=== PATIENT | female | born 1925 | race Caucasian/White ===

== ENCOUNTER 2016-11-14 10:47 | Inpatient (IN) | payer OTHER ==
[~2016-11-14] VITALS: Ht 165.1 cm; Wt 79.4 kg
[~2016-11-14 10:47] MED LIST: ATENOLOL100 M1 PO; BISACODYL5 M1 PO; CEFTIN250 M1 PO; CLOPIDOGREL75 M1 PO; CRESTOR20 M2 PO; DOCUSATE SODIU100 M3 PO; FENOFIBRIC ACID45 M1 PO; HALOPERIDOL1 M1 PO; HYDROCORTISO28.35 GM EXT; LEVOTHYROXINE100 MC1 PO; MELATONIN5 M6 PO; MIRALAX17 G1 PO; NAPROXEN250 M1 PO; NYSTATIN100000 UNI PO; OMEPRAZOLE20 M2 PO; ONE DAILY MULT1 EAC2 PO; PEPCID20 M1 PO; PLAVIX75 M1 PO; PROSOURCE NO CA30 ML PO; QUETIAPINE FUMA25 M1 PO; SENNA8.6 M3 PO; SYNTHROID100 MCG PO; TENORMIN50 M1 PO; TRAZODONE HCL50 M1 PO; TYLENOL EXTRA500 M2 PO; TYLENOL325 M1 PO; VITAMIN C500 M8 PO; VITAMIN D3400 UNI1 PO; VOLTAREN100 GM TOP; ZITHROMAX250 M2 PO
--- NOTE | 2016-11-14 11:20 | NUR ---
INCONTINENT OF URINE ON ARRIVAL. KASHIF CARE DONE, COCCYX RED, NO SKIN BREAKDOWN. STRIAGHT CATHETERIZED FOR 100 ML CLOUDY, YELLOW URINE. URINE TRIO SENT.
--- NOTE | 2016-11-14 11:20 | NUR ---
BIBA FROM [facility], SENT FOR EVALUATION OF CHANGE IN MENTAL STATUS, CHEST CONGESTION. ALERT, BUT CONFUSED TO DATE , TIME, PLACE. 02 DEPENDENT (4L). RECENT DX OF UTI, ON ABX.
--- NOTE | 2016-11-14 11:35 | NUR ---
BLOOD DRAWN AND SENT TO THE LAB (SST,LAV,BLUE,LIRA) URINE TRIO SENT TO THE LAB
[2016-11-14] MEDS ORDERED: TRAZODONE HCL50 M1 PO ×2 (11:37→11:38)
[2016-11-14 11:39] LABS: ABSOLUTE BASOPHIL COUNT 0 /CUMM (0.0-0.2); ABSOLUTE EOSINOPHIL COUNT 0 /CUMM (0.0-0.7); ABSOLUTE GRANULOCYTE CT 18.3 /CUMM (1.4-6.5); ABSOLUTE LYMPH COUNT 1.4 /CUMM (1.2-3.4); ABSOLUTE MONOCYTE COUNT 1.5 /CUMM (0.10-0.60); BASOPHIL % 0.1 % (0.0-2.0); EOSINOPHIL % 0 % (0-5); GRANULOCYTE % 86.2 % (42.2-75.2); PLATELET COUNT 147 /CUMM (130-400); RED BLOOD CELL CT 4.03 /CUMM (4.20-5.40)
[2016-11-14 11:44] LABS: MEAN CORPUSCULAR HGB 29.7 PG (27.0-31.0); MEAN CORPUSCULAR HGB CONC 33.6 G/DL (33.0-37.0); MEAN CORPUSCULAR VOLUME 88.5 FL (81.0-99.0); MEAN PLATELET VOLUME 11.9 FL (7.4-10.4); RBC DISTRIBUTION WIDTH 14.6 % (11.5-14.5); WHITE BLOOD CELL COUNT 21.2 /CUMM (4.8-10.8)
[2016-11-14 11:50] LABS: HEMATOCRIT 35.7 % (37-47)
--- NOTE | 2016-11-14 12:03 | NUR ---
UA SENT ( 1 YELLOW , 1 LIRA).
--- NOTE | 2016-11-14 12:11 | ED AMS/SEIZURE/WEAK/DIZZY ---
History of Present Illness General Chief Complaint: Altered Mental Status Stated Complaint: BIBA AMS Source: patient, family, old records, EMS Exam Limitations: confusion, dementia Vital Signs & Intake/Output Vital Signs & Intake/Output Vital Signs Date Time Temp Pulse Resp B/P B/P Pulse O2 O2 Flow FiO2 Mean Ox Delivery Rate 11/14 1243 100.0 62 20 133/60 93 Nasal 4.0L Cannula 11/14 1122 95 4.0L 11/14 1050 97.7 86 20 132/61 93 Nasal 4.0L Cannula Allergies Coded Allergies: Penicillins (UNKNOWN PER PT DOES NOT REMEMBER 09/27/15) celecoxib (From CELEBREX) (UNKNOWN PER PT DOES NOT REMEMBER 09/27/15) diazepam (UNKNOWN PER PT DOES NOT REMEMBER 09/27/15) Reconcile Medications Acetaminophen (Tylenol Extra Strength) 500 MG TABLET 1 TAB PO BID PAIN ( Reported) Reason to Stop at ADM: ON PRN TYLENOL, AMS CURRENTLY, NO PAIN Amino Acids/Protein Hydrolys (Prosource No Carb Liquid Pkt) 30 ML LIQUID.PKT 30 ML PO BID SUPPLEMENT (Reported) Ascorbic Acid (Vitamin C) 500 MG TABLET 500 MG PO BID supplement Atenolol 100 MG TABLET 1 TAB PO DAILY BP (Reported) Azithromycin (Zithromax) 250 MG TABLET 1 TAB PO DAILY Lung infection Cefuroxime (Ceftin) 250 MG TABLET 1 TAB PO BID Lung infection Cholecalciferol (Vitamin D3) (Vitamin D3) 400 UNIT TABLET 400 IU PO DAILY Supplement Clopidogrel Bisulfate (Clopidogrel) 75 MG TABLET 1 TAB PO DAILY BLOOD THINNER (Reported) Famotidine (Pepcid) 20 MG TABLET 1 TAB PO DAILY GERD (Reported) Levothyroxine Sodium 100 MCG TABLET 1 TAB PO DAILY THYROID (Reported) Melatonin 5 MG TAB.SUBL 5 MG PO AT BEDTIME sleep Reason to Stop at ADM: AMS Multivitamin (One Daily Multivitamin) 1 EACH TABLET 1 TAB PO DAILY supplement Nystatin 100,000 UNIT/1 ML ORAL.SUSP 5 ML PO 4 TIMES/DAY oral candidiasis Polyethylene Glycol 3350 (Miralax) 17 GM POWD.PACK 1 PAC PO DAILY CONSTIPATION (Reported) dissolve in water Trazodone HCl 50 MG TABLET 50 MG PO DAILY ANXIETY (Reported) Triage Note: BIBA FROM [facility], SENT FOR EVALUATION OF CHANGE IN MENTAL STATUS, CHEST CONGESTION. ALERT, BUT CONFUSED TO DATE , TIME, PLACE. 02 DEPENDENT (4L). RECENT DX OF UTI, ON ABX. Triage Nurses Notes Reviewed? yes Onset: Abrupt Duration: day(s): Timing: recent history Injury Environment: home No Modifying Factors: none HPI: 89-year-old female comes into emergency room for further evaluation of increased confusion from snf. Patient currently being treated for urinary tract infection. History very limited secondary to patient's confusion and clinical condition. No family to offer any information. She denies any chest pain. She is been increasingly short of breath. History of COPD. There is been no reports of vomiting. no reports of Any falls or trauma. (DENISE AGUILERA) Past History Travel History Traveled to [place] past 21 day No Medical History Any Pertinent Medical History? 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 History of MRSA: No History of VRE: No History of CDIFF: No Pneumonia Vaccine: 05/21/12 Surgical History Surgical History: L 1ST TOE AMPUTATION Psychosocial History Who do you live with Patient/Self Services at Home None What is your primary language Macedonian Tobacco Use: Never used ETOH Use: denies use Family History Family History, If Any: BROTHER (DEMENTIA). SISTER (CAD). Hx Contributory? No (DENISE AGUILERA) Review of Systems Review of Systems Constitutional: Reports: see HPI. EENTM: Reports: no symptoms. Respiratory: Reports: no symptoms. Cardiovascular: Reports: no symptoms. GI: Reports: no symptoms. Genitourinary: Reports: see HPI. Musculoskeletal: Reports: no symptoms. Skin: Reports: no symptoms. Neurological/Psychological: Reports: see HPI. Hematologic/Endocrine: Reports: no symptoms. Immunologic/Allergic: Reports: no symptoms. All Other Systems: Reviewed and Negative (DENISE AGUILERA) Physical Exam Physical Exam General Appearance: awake, lethargic, mild distress Head: atraumatic Eyes: Bilateral: normal appearance. Ears, Nose, Throat: normal ENT inspection, hearing grossly normal Neck: normal inspection Respiratory: decreased breath sounds Cardiovascular: regular rate/rhythm Gastrointestinal: soft, non-tender Back: normal inspection Extremities: normal inspection Neurologic/Psych: disoriented x 3 (times 2 disoriented) Skin: intact, normal color Core Measures ACS in differential dx? Yes CVA/TIA Diagnosis: No Severe Sepsis Present: No Septic Shock Present: No (DENISE AGUILERA) Progress Differential Diagnosis: anemia, benign positional vertigo, CVA/stroke, dehydration, electrolyte imbalance, GI bleed, hypoxia, intracranial mass/tumor, meningitis, pneumonia, sepsis, UTI/pyelo Plan of Care: Orders Procedure Date/time Status CBC WITHOUT DIFFERENTIAL 11/15 0600 Active BASIC ELECTROLYTES PLUS BUN&CR 11/15 0600 Active Regular Diet 11/14 L Active LACTIC ACID 11/[address] HEAD WO IV CONTRAST 11/14 1301 Active TRC EVALUATION (GEN) 11/14 1247 Active OXYGEN SETUP (GEN) 11/14 1247 Active Pathway - chart 11/14 1247 Active House Staff 11/14 1247 Active Patient Data 11/14 1247 Active Patient Data 11/14 1235 Active OXYGEN SETUP (GEN) 11/14 1205 Active Saline Lock 11/14 1205 Active Admit to inpatient 11/14 1205 Active Vital Signs 11/14 1205 Active Activity/Ambulation 11/14 1205 Active Code Status 11/14 1205 Active LACTIC ACID 11/14 1200 Active Add-on Test (ER Only) 11/14 1151 Active BLOOD CULTURE 11/14 1151 Active Add-on Test (ER Only) 11/14 1145 Active CULTURE,URINE 11/14 1137 Active LACTIC ACID 11/14 1123 Complete Intake & Output 11/14 1120 Active URINALYSIS 11/14 1118 Complete TROPONIN LEVEL 11/14 1118 Complete COMPREHENSIVE METABOLIC PANEL 11/14 1118 Complete CBC WITHOUT DIFFERENTIAL 11/14 1118 Complete EKG 11/14 1118 Active VTE Mechanical Prophylaxis 11/14 UNK Active MISTAKE 11/14 UNK Active Intake & Output 11/14 UNK Active Hemoccult 11/14 UNK Active Laboratory Tests 11/14/16 1123: Lactic Acid 1.6 11/14/16 1123: Anion Gap 10, Estimated GFR 52 L, BUN/Creatinine Ratio 43.0 H, Glucose 110 H, Calcium 8.4, Total Bilirubin 1.5 H, AST 29, ALT 33, Alkaline Phosphatase 153 H , Troponin I 0.06, Total Protein 5.3 L, Albumin 2.5 L, Globulin 2.8, Albumin/ Globulin Ratio 0.9 L, CBC w Diff MAN DIFF ORDERED, RBC 4.03 L, MCV 88.5, MCH 29.7, RDW 14.6 H, MPV 11.9 H, Gran % 86.2 H, Lymphocytes % 6.6 L, Monocytes % 7.1, Eosinophils % 0, Basophils % 0.1, Absolute Granulocytes 18.3 H, Absolute Lymphocytes 1.4, Absolute Monocytes 1.5 H, Absolute Eosinophils 0, Absolute Basophils 0, Platelet Estimate ADEQUATE, Anisocytosis 1+, PUBS MCHC 33.6, Urine Color YEL, Urine Clarity CLDY H, Urine pH 6.0, Ur Specific [place] 1.020, Urine Protein 30 H, Urine Ketones NEG, Urine Nitrite POS H, Urine Bilirubin NEG, Urine Urobilinogen 1.0, Ur Leukocyte Esterase LARGE H, Ur Microscopic SEDIMENT EXAMINED, Urine RBC RARE, Urine WBC PACKD H, Ur Epithelial Cells RARE, Urine Bacteria MANY H, Urine Hemoglobin MOD H, Urine Glucose NEG Microbiology 11/14 1203 BLOOD: Blood Culture - RECD 11/14 1155 BLOOD: Blood Culture - RECD 11/14 1123 URINE ROUT: Urine Culture - RECD Diagnostic Imaging: Viewed by Me: Radiology Read. Discussed w/RAD: Radiology Read. Radiology Impression: SERVICE DATE: 11/14/16 EXAM TYPE: RAD - XRY- PORTABLE CHEST XRAY EXAMINATION: XR PORTABLE CHEST CLINICAL INFORMATION: Altered mental status. Hypoxia. COMPARISON: Portable chest 11/10/2015. TECHNIQUE: Portable AP 75 degrees upright view of the chest was obtained. FINDINGS: The heart is normal in size. There is no congestion or focal consolidation. The bony thorax is unremarkable. IMPRESSION: No acute cardiopulmonary process. Initial ED EKG: normal intervals, normal p-waves, normal sinus rhythm, rate (81) (DENISE AGUILERA) Departure Departure Disposition: STILL A PATIENT Condition: Stable Clinical Impression Primary Impression: UTI (urinary tract infection) Secondary Impressions: Altered mental state, Leukocytosis Referrals: KARELY PARIS MD (PCP/Family) Departure Forms: Customer Survey General Discharge Information Admission Note Spoke With: HANS METZ MD Documentation of Exam: Documentation of any treatments & extenuating circumstances including Concerns Regarding Discharge (functional status, medication knowledge or non-compliance, living conditions, etc.) that warrant an admission rather than observation: Patient has failed outpatient treatment with oral antibiotics. Patient's previous urine culture sensitivity shows resistance to multiple antibiotics susceptibility to gentamicin. Patient will require IV antibiotics. IV fluids. Infectious disease consultation. High risk. Patient would do poorly as an outpatient. (DENISE AGUILERA) PA/WILDLIFE VETERINARIAN Co-Sign Statement Statement: ED Attending supervision documentation- x I saw and evaluated the patient. I have also reviewed all the pertinent lab results and diagnostic results. I agree with the findings and the plan of care as documented in the PA's/WILDLIFE VETERINARIAN's documentation. [] I have reviewed the ED Record and agree with the PA's/WILDLIFE VETERINARIAN's documentation. [] Additions or exceptions (if any) to the PAs/WILDLIFE VETERINARIAN's note and plan are summarized below: [] (BREE ROBERTSON,NHAN) Critical Care Note Critical Care Note Critical Care Time: 30-74 min (40) (DENISE AGUILERA)
--- NOTE | 2016-11-14 12:33 | RADIOLOGY REPORT ---
EXAMINATION: XR PORTABLE CHEST CLINICAL INFORMATION: Altered mental status. Hypoxia. COMPARISON: Portable chest 11/10/2015. TECHNIQUE: Portable AP 75 degrees upright view of the chest was obtained. FINDINGS: The heart is normal in size. There is no congestion or focal consolidation. The bony thorax is unremarkable. IMPRESSION: No acute cardiopulmonary process.
--- NOTE | 2016-11-14 12:41 | NUR ---
RECTAL TEMP 100.
--- NOTE | 2016-11-14 12:43 | NUR ---
PULLING O2 CANNULA OFF FREQUENTLY.
--- NOTE | 2016-11-14 12:48 | History & Physical ---
ALFONSO MALONE 11/14/16 1247: General Information and HPI MD Statement: I have seen and personally examined ROGERIO WILSON and documented this H&P. Source of Information: patient, old records Exam Limitations: unable to give history, confusion, poor historian History of Present Illness: This is an 89-year-old lady with past medical history significant for hypertension, hyperlipidemia,PVD, hypothyroidism, dementia, PVD s/p Lt. femoral artery stent(2008), s/p Lt. 1st toe amputation due to gangrene(2007), IBD, GERD sent to the hospital from [facility] for worsening of clinical condition and confusion. She was being treated for UTI. At the time of our interview, she is lethargic and confused, unable to provide history or review of system. However, she denies headache, chest pain, shortness of breath, nausea, vomiting, dizziness, lightheadedness, abdominal pain, urinary symptoms. Allergies/Medications Allergies: Coded Allergies: Penicillins (UNKNOWN PER PT DOES NOT REMEMBER 09/27/15) celecoxib (From CELEBREX) (UNKNOWN PER PT DOES NOT REMEMBER 09/27/15) diazepam (UNKNOWN PER PT DOES NOT REMEMBER 09/27/15) Home Med list Acetaminophen (Tylenol Extra Strength) 500 MG TABLET 1 TAB PO BID PAIN ( Reported) Reason to Stop at ADM: ON PRN TYLENOL, AMS CURRENTLY, NO PAIN Amino Acids/Protein Hydrolys (Prosource No Carb Liquid Pkt) 30 ML LIQUID.PKT 30 ML PO BID SUPPLEMENT (Reported) Ascorbic Acid (Vitamin C) 500 MG TABLET 500 MG PO BID supplement Atenolol 25 MG TABLET 75 MG PO DAILY HTN (Reported) Cholecalciferol (Vitamin D3) (Vitamin D3) 400 UNIT TABLET 400 IU PO DAILY Supplement Clopidogrel Bisulfate (Clopidogrel) 75 MG TABLET 1 TAB PO DAILY BLOOD THINNER (Reported) Escitalopram Oxalate 5 MG TABLET 1 TAB PO DAILY Depression (Reported) Famotidine (Pepcid) 20 MG TABLET 1 TAB PO DAILY GERD (Reported) Levothyroxine Sodium 100 MCG TABLET 1 TAB PO DAILY THYROID (Reported) Melatonin 5 MG TAB.SUBL 5 MG PO AT BEDTIME sleep Reason to Stop at ADM: AMS Multivitamin (One Daily Multivitamin) 1 EACH TABLET 1 TAB PO DAILY supplement Nystatin 100,000 UNIT/1 ML ORAL.SUSP 5 ML PO 4 TIMES/DAY oral candidiasis Polyethylene Glycol 3350 (Miralax) 17 GM POWD.PACK 1 PAC PO DAILY CONSTIPATION (Reported) dissolve in water Trazodone HCl 50 MG TABLET 50 MG PO DAILY ANXIETY (Reported) Past History Travel History Traveled to [place] past 21 day No Medical History Neurological: dementia EENT: NONE Cardiovascular: hypertension, hyperlipidemia, PVD Respiratory: NONE Gastrointestinal: GERD, irritable bowel syndrome Hepatic: NONE Renal: NONE Musculoskeletal: ARTHIRITIS Psychiatric: NONE Endocrine: HYPOTHYROID Blood Disorders: NONE Cancer(s): 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 History of MRSA: No History of VRE: No History of CDIFF: No Pneumonia Vaccine: 05/21/12 Surgical History Surgical History: L 1ST TOE AMPUTATION Past Family/Social History Family History Relations & Conditions if any BROTHER (DEMENTIA). SISTER (CAD). Psychosocial History Services at Home: None Primary Language: Georgian ETOH Use: denies use Functional Ability Ambulation: unobtainable Review of Systems Review of Systems Constitutional: Denies: see HPI. Exam & Diagnostic Data Last 24 Hrs of Vital Signs/I&O Vital Signs Date Time Temp Pulse Resp B/P B/P Pulse O2 O2 Flow FiO2 Mean Ox Delivery Rate 11/14 1243 100.0 62 20 133/60 93 Nasal 4.0L Cannula 11/14 1122 95 4.0L 11/14 1050 97.7 86 20 132/61 93 Nasal 4.0L Cannula Intake & Output 11/14 1600 11/14 0800 11/14 0000 Intake Total 1100 Output Total 100 Balance 1000 Intake, IV 1100 Output, Urine 100 Patient 175 lb Weight Weight Estimated Measurement Method Physical Exam General Appearance lethargic, Responds to painful stimuli. Skin No Rashes, No Breakdown, No Significant Lesion HEENT Atraumatic, PERRLA, EOMI, Mucous Membr. moist/pink Neck Supple, No JVD, No thryomegaly Lymphatic Axillary nl, Cervical nl Cardiovascular Regular Rate, Normal S1, Normal S2, No Murmurs Lungs Clear to Auscultation, Normal Air Movement Abdomen Normal Bowel Sounds, Soft, No Tenderness, No Hepatospenomegaly, No Masses Neurological Normal Tone, Sensation Intact, Reflexes 2+, exam limited. , confused Extremities No Clubbing, No Cyanosis, No Edema, Normal Pulses, No Tenderness/ Swelling Vascular Normal Pulses, Pulses Symmetrical Last 24 Hrs of Labs/Federico: Laboratory Tests 11/14/16 1123: Lactic Acid 1.6 11/14/16 1123: Anion Gap 10, Estimated GFR 52 L, BUN/Creatinine Ratio 43.0 H, Glucose 110 H, Calcium 8.4, Total Bilirubin 1.5 H, AST 29, ALT 33, Alkaline Phosphatase 153 H , Troponin I 0.06, Total Protein 5.3 L, Albumin 2.5 L, Globulin 2.8, Albumin/ Globulin Ratio 0.9 L, CBC w Diff MAN DIFF ORDERED, RBC 4.03 L, MCV 88.5, MCH 29.7, RDW 14.6 H, MPV 11.9 H, Gran % 86.2 H, Lymphocytes % 6.6 L, Monocytes % 7.1, Eosinophils % 0, Basophils % 0.1, Absolute Granulocytes 18.3 H, Absolute Lymphocytes 1.4, Absolute Monocytes 1.5 H, Absolute Eosinophils 0, Absolute Basophils 0, Platelet Estimate ADEQUATE, Anisocytosis 1+, PUBS MCHC 33.6, Urine Color YEL, Urine Clarity CLDY H, Urine pH 6.0, Ur Specific [place] 1.020, Urine Protein 30 H, Urine Ketones NEG, Urine Nitrite POS H, Urine Bilirubin NEG, Urine Urobilinogen 1.0, Ur Leukocyte Esterase LARGE H, Ur Microscopic SEDIMENT EXAMINED, Urine RBC RARE, Urine WBC PACKD H, Ur Epithelial Cells RARE, Urine Bacteria MANY H, Urine Hemoglobin MOD H, Urine Glucose NEG Microbiology 11/14 1203 BLOOD: Blood Culture - RECD 11/14 1155 BLOOD: Blood Culture - RECD 11/14 1123 URINE ROUT: Urine Culture - RECD Diagnostic Data EKG Results Sinus rhythm, rate 81, QTC 441, no ST-T wave abnormalities. CXR Results IMPRESSION: No acute cardiopulmonary process. Assessment/Plan Assessment: This is an 89-year-old lady with past medical history significant for hypertension, hyperlipidemia, hypothyroidism, dementia, PVD s/p Lt. femoral artery stent(2008), s/p Lt. 1st toe amputation due to gangrene(2007), IBD, GERD sent to the hospital from [facility] for worsening of clinical condition and confusion. She was being treated for UTI. Per records, patient underwent abdominal ultrasound on 11/13/2016 for abdominal pain which showed mild renal cortical thinning bilaterally, nonspecific but may be age-related or secondary to medical renal disease. Right renal cyst with benign features. Problem list #Sepsis of urological origin: The patient meets SIRS criteria with leukocytosis and fever, UA is positive, urine culture on 11/11/2016 is positive for ESBL sensitive to gentamicin, nitrofurantoin and imipenem. #Altered mental status: Patient presents with confusion, likely secondary to metabolic encephalopathy secondary to sepsis #Hypokalemia #History of hypertension #History of hypothyroidism #History of GERD Plan * Vital signs per protocol * Follow-up cultures * Head CT ordered given altered mental status, please follow-up with the results * KCl 10 mEq 1 given, monitor electrolytes and replete accordingly * Please follow ID recommendations. * DVT prophylaxis at all times * Patient is full code As Ranked By This Provider Problem List: 1. GERD 2. Leukocytosis 3. Mental status change 4. Sepsis Core Measures/Miscellaneous Acute Coronary Syndrome ACS Diagnosis: No Cerebrovascular Accident CVA/TIA Diagnosis: No Congestive Heart Failure CHF Diagnosis: No VTE (View Protocol) VTE Risk Factors: Age > 40 [facility] prophylaxis d/t: No contraindications No VTE Pharm Prophylaxis d/t: No contraindications VTE Diagnosis: No VTE Type: NONE VTE Confirmed by (Test): NONE Sepsis (View Protocol) Severe Sepsis Present: Yes BC x2: Yes Lactic Acid x2: Yes IV ABX Broad Spectrum: Yes NS/LR Started: Yes Septic Shock Septic Shock Present: No Miscellaneous Documentation Attending Case Discussed With: Dr. Dupree Primary Care Physician: KARELY PARIS MD Patient sees these Specialists . Level of Patient Care: General Medicine FRANCOJAVIERABIMAEL 11/14/16 1310: Attending MD Review Statement Attending Statement Attending MD Statement: examined this patient, discuss w/resident/PA/OIL HEATER OPERATOR, agreed w/resident/PA/OIL HEATER OPERATOR, discussed with family, reviewed EMR data (avail), discussed with nursing, discussed with case mgmt, reviewed images, amended to note Attending Assessment/Plan: Patient poor historian , vital stable, exam follows commnands, pupils reactive. ASSESSMENT 1. Toxic metabolic encephalopathy 2. sepsis 2/2 UTI h/o ESBL 3. Leukocytosis 4. Hypokalemia 5. History of peripheral vascular disease 6. Hypertension controlled 7. Hypothyroidism 8. Dementia History of agitation, psych issues resident of NH facility. PLAN admit to inpatient medical services obtain CT head, imaging reports seen, labs reviewd. start broad spectrum abx, Consult ID h/o esbl in past sensitive to meropenem. f/ u BC, urine culture replace electrolytes prn continue supportive care gi/dvt prophylaxis TTS>37 min.
--- NOTE | 2016-11-14 12:57 | NUR ---
pt admitted to room 204-1
--- NOTE | 2016-11-14 13:12 | NUR ---
PT HAS NEW BED ASSIGNMENT 201
[2016-11-14] MEDS ORDERED: ATENOLOL25 M1 PO (14:11)
[2016-11-14] MEDS ORDERED: ESCITALOPRAM OXA5 MG PO (14:12)
--- NOTE | 2016-11-14 14:14 | NUR ---
REPORT TO FLOOR, (MONICA).
--- NOTE | 2016-11-14 15:27 | CT SCAN REPORT ---
EXAMINATION: CT HEAD WITHOUT CONTRAST CLINICAL INFORMATION: Altered mental status. Cerebrovascular accident. Confusion. COMPARISON: Portions of a previous study 11/10/15 TECHNIQUE: Multidetector CT examination of the head is performed without contrast. Technologist indicates the patient was unable to be optimally positioned. Several repeats were attempted DLP: 1334 mGy-cm FINDINGS: Severe limitation secondary to motion artifact. There is no evidence of a recent intracranial hemorrhage or extra-axial collection. The midline structures are nondisplaced. Age-appropriate prominence of the ventricles, cisterns and sulci suggesting atrophy. There is no evidence of an intra-axial mass. There are no suspicious focal areas of abnormal brain attenuation. The fuchs-white interface is within normal limits. There is no evidence of acute territorial infarct. There is likely some microangiopathy. There is no definite fracture or fluid level. This represents an interval improvement in the right maxillary sinus. IMPRESSION: 1. Limited exam. 2. No acute infarct. 3. No intracranial hemorrhage or definite mass
[2016-11-14 15:39] VITALS: BP 110/58
--- NOTE | 2016-11-14 17:12 | Cons- Infect Disease ---
General Information and HPI Consulting Request Date of Consult: 11/14/16 Requested By: HANS METZ MD Reason for Consult: Rule out urinary tract infection Source of Information: old records Exam Limitations: dementia History of Present Illness: This is an 89-year-old woman assisted resident with a history of hypertension, hypothyroidism, peripheral vascular disease and dementia, found to have fluctuating white blood cell counts over the past 10 days, up to 18,000 9 days prior to admission and 10,000 5 days prior to admission, and with a urine culture sent 3 days prior to admission positive for greater than 100,000 colonies of ESBL producing Escherichia coli with urinalysis revealing packed white blood cells, with details regarding any treatment not available, and with a renal ultrasound obtained one day prior to admission apparently revealing renal cortical thinning bilaterally with a right renal cyst, admitted today after she was sent to the emergency room for altered mental status and chest congestion. On admission she was febrile to 100. Laboratory data revealed a white blood cell count of 21,000, BUN/creatinine 43 and 1.0, bilirubin 1.5, alk phosphatase 153. Urinalysis rare RBC/packed WBCs. Chest x-ray was negative. CT of the head was negative for any acute process. She is unable to provide any history secondary to her underlying dementia. Allergies/Medications Allergies: Coded Allergies: Penicillins (UNKNOWN PER PT DOES NOT REMEMBER 09/27/15) celecoxib (From CELEBREX) (UNKNOWN PER PT DOES NOT REMEMBER 09/27/15) diazepam (UNKNOWN PER PT DOES NOT REMEMBER 09/27/15) Home Med List: Acetaminophen (Tylenol Extra Strength) 500 MG TABLET 1 TAB PO BID PAIN ( Reported) Reason to Stop at ADM: ON PRN TYLENOL, AMS CURRENTLY, NO PAIN Amino Acids/Protein Hydrolys (Prosource No Carb Liquid Pkt) 30 ML LIQUID.PKT 30 ML PO BID SUPPLEMENT (Reported) Ascorbic Acid (Vitamin C) 500 MG TABLET 500 MG PO BID supplement Atenolol 25 MG TABLET 75 MG PO DAILY HTN (Reported) Azithromycin (Zithromax) 250 MG TABLET 1 TAB PO DAILY Lung infection Cefuroxime (Ceftin) 250 MG TABLET 1 TAB PO BID Lung infection Cholecalciferol (Vitamin D3) (Vitamin D3) 400 UNIT TABLET 400 IU PO DAILY Supplement Clopidogrel Bisulfate (Clopidogrel) 75 MG TABLET 1 TAB PO DAILY BLOOD THINNER (Reported) Escitalopram Oxalate 5 MG TABLET 1 TAB PO DAILY Depression (Reported) Famotidine (Pepcid) 20 MG TABLET 1 TAB PO DAILY GERD (Reported) Levothyroxine Sodium 100 MCG TABLET 1 TAB PO DAILY THYROID (Reported) Melatonin 5 MG TAB.SUBL 5 MG PO AT BEDTIME sleep Reason to Stop at ADM: AMS Multivitamin (One Daily Multivitamin) 1 EACH TABLET 1 TAB PO DAILY supplement Nystatin 100,000 UNIT/1 ML ORAL.SUSP 5 ML PO 4 TIMES/DAY oral candidiasis Polyethylene Glycol 3350 (Miralax) 17 GM POWD.PACK 1 PAC PO DAILY CONSTIPATION (Reported) dissolve in water Trazodone HCl 50 MG TABLET 50 MG PO DAILY ANXIETY (Reported) Past History Travel History Traveled to [place] past 21 day No Medical History Neurological: dementia EENT: NONE Cardiovascular: hypertension, hyperlipidemia, PVD Respiratory: NONE Gastrointestinal: GERD, irritable bowel syndrome Hepatic: NONE Renal: NONE Musculoskeletal: ARTHIRITIS Psychiatric: NONE Endocrine: HYPOTHYROID Blood Disorders: NONE Cancer(s): NONE 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 History of MRSA: No History of VRE: No History of CDIFF: No Isolation History: Contact Pneumonia Vaccine: 05/21/12 Surgical History Surgical History: L 1ST TOE AMPUTATION Family History Relations & Conditions If Any: BROTHER (DEMENTIA). SISTER (CAD). Psychosocial History Services at Home: None Primary Language: Moldovan Smoking Status: Unknown If Ever Smoked ETOH Use: denies use Functional Ability Ambulation: unobtainable Review of Systems Comments Unobtainable Exam & Diagnostic Data Last 24 Hrs of Vital Signs/I&O Vital Signs Date Time Temp Pulse Resp B/P B/P Pulse O2 O2 Flow FiO2 Mean Ox Delivery Rate 11/14 1539 97.9 64 20 110/58 95 Nasal 5.0L Cannula 11/14 1500 96 Nasal 4.0L Cannula 11/14 1243 100.0 62 20 133/60 93 Nasal 4.0L Cannula 11/14 1122 95 4.0L 11/14 1050 97.7 86 20 132/61 93 Nasal 4.0L Cannula Intake & Output 11/14 1600 11/14 0800 11/14 0000 Intake Total 1100 Output Total 100 Balance 1000 Intake, IV 1100 Output, Urine 100 Patient 175 lb Weight Weight Estimated Measurement Method Physical Exam Other Physical Findings: She is awake and alert in no acute distress. MAXIMUM TEMPERATURE 100. Skin reveals no rash. HEENT exam is negative. Neck is supple with no adenopathy. Lungs bibasilar crackles. Heart regular rhythm with no murmur. Abdomen is soft , nontender with positive bowel sounds. Back no CVA tenderness. Extremities status post partial amputation of the left great toe; stage II left heel decubitus. Neuro is without focality. Last 24 Hours of Lab Results: Laboratory Tests 11/14 11/14 1123 1123 Chemistry Sodium (137 - 145 mmol/L) 143 Potassium (3.5 - 5.1 mmol/L) 3.2 L Chloride (98 - 107 mmol/L) 107 Carbon Dioxide (22 - 30 mmol/L) 27 Anion Gap (5 - 16) 10 BUN (7 - 17 mg/dL) 43 H Creatinine (0.5 - 1.0 mg/dL) 1.0 Estimated GFR (>60 ml/min) 52 L BUN/Creatinine Ratio (7 - 25 %) 43.0 H Glucose (65 - 99 mg/dL) 110 H Lactic Acid (0.7 - 2.1 mmol/L) 1.6 Calcium (8.4 - 10.2 mg/dL) 8.4 Total Bilirubin (0.2 - 1.3 mg/dL) 1.5 H AST (14 - 36 U/L) 29 ALT (9 - 52 U/L) 33 Alkaline Phosphatase (<127 U/L) 153 H Troponin I (< 0.11 ng/ml) 0.06 Total Protein (6.3 - 8.2 g/dL) 5.3 L Albumin (3.5 - 5.0 g/dL) 2.5 L Globulin (1.9 - 4.2 gm/dL) 2.8 Albumin/Globulin Ratio (1.1 - 2.2 %) 0.9 L Hematology CBC w Diff MAN DIFF ORDERED WBC (4.8 - 10.8 /CUMM) 21.2 H RBC (4.20 - 5.40 /CUMM) 4.03 L Hgb (12.0 - 16.0 G/DL) 12.0 Hct (37 - 47 %) 35.7 L MCV (81.0 - 99.0 FL) 88.5 MCH (27.0 - 31.0 PG) 29.7 RDW (11.5 - 14.5 %) 14.6 H Plt Count (130 - 400 /CUMM) 147 MPV (7.4 - 10.4 FL) 11.9 H Gran % (42.2 - 75.2 %) 86.2 H Lymphocytes % (20.5 - 51.1 %) 6.6 L Monocytes % (1.7 - 9.3 %) 7.1 Eosinophils % (0 - 5 %) 0 Basophils % (0.0 - 2.0 %) 0.1 Absolute Granulocytes (1.4 - 6.5 /CUMM) 18.3 H Absolute Lymphocytes (1.2 - 3.4 /CUMM) 1.4 Absolute Monocytes (0.10 - 0.60 /CUMM) 1.5 H Absolute Eosinophils (0.0 - 0.7 /CUMM) 0 Absolute Basophils (0.0 - 0.2 /CUMM) 0 Platelet Estimate (ADEQUATE) ADEQUATE Anisocytosis 1+ PUBS MCHC (33.0 - 37.0 G/DL) 33.6 Urines Urine Color (YEL,AMB,STR) YEL Urine Clarity (CLEAR) CLDY H Urine pH (5.0 - 8.0) 6.0 Ur Specific [place] (1.001 - 1.035) 1.020 Urine Protein (NEG,<30 MG/DL) 30 H Urine Ketones (NEG) NEG Urine Nitrite (NEG) POS H Urine Bilirubin (NEG) NEG Urine Urobilinogen (0.1 - 1.0 EU/dl) 1.0 Ur Leukocyte Esterase (NEG) LARGE H Ur Microscopic SEDIMENT EXAMINED Urine RBC (0 - 5 /HPF) RARE Urine WBC (0 - 2 /HPF) PACKD H Ur Epithelial Cells (NONE,FEW) RARE Urine Bacteria (NEG/NONE) MANY H Urine Hemoglobin (NEG) MOD H Urine Glucose (N MG/DL) NEG Last 24 Hours of Federico Results: Blood cultures November 11 one bottle positive for gram-negative rods Urine culture November 11 greater than 100,000 colonies of ESBL producing Escherichia coli sensitive to Gentamicin, Imipenem and Nitrofurantoin Blood cultures 2 November 14 pending Urine culture November 14 pending Diagnostic Data Recent Imaging Findings: Chest x-ray November [address] of the head November 14 negative Assessment/Plan Assessment/Plan Impression: This is an 89-year-old woman assisted resident with a history of dementia, hypertension, hypothyroidism and peripheral vascular disease admitted today because of an altered mental status and congestion, found to have a low-grade fever with a leukocytosis and pyuria with a recent urine culture positive for ESBL producing Escherichia coli and with a blood culture obtained 3 days prior to admission found to be positive for gram-negative rods. The most likely source of her positive blood culture is the urinary tract, with pyuria and the positive urine culture. An intra-abdominal process, for example involving the biliary tree, could be considered, particularly with her elevated bilirubin and alk phosphatase, though her abdominal exam appears benign. She will likely need to be treated with a 2 week course of IV antibiotics based on her urine culture and sensitivities. Suggestion: 1. Would obtain a right upper quadrant ultrasound 2. Follow up final cultures 3. Begin Meropenem 1 g IV every 12 hours 4. Will likely require a PICC Consult Acknowledgment - Thank you for your consult request.
[2016-11-14 21:51] VITALS: BP 110/54
--- NOTE | 2016-11-15 00:30 | Event Note ---
Event Note Event Note: Received critical value from the lab, blood cultures 2 are growing gram- negative rods. Patient was started on meropenem based on ID recommendations.
[2016-11-15 06:00] VITALS: BP 110/60
--- NOTE | 2016-11-15 07:30 | PN- Housestaff ---
See Addendum MANDIE RAZO MD,RUT 11/15/16 0730: Subjective Follow-up For: Gram-negative bacteremia Sepsis of urological origin UTI secondary to ESBL Escherichia coli Complaints: no complaints Subjective: Patient remained afebrile overnight. Review of Systems Constitutional: Denies: chills, fever. EENTM: Denies: visual changes. Cardiovascular: Denies: chest pain, palpitations. Respiratory: Denies: cough, short of breath. Gastrointestinal: Denies: abdominal pain, nausea, vomiting. Genitourinary: Denies: dysuria. Musculoskeletal: Denies: back pain. Objective Last 24 Hrs of Vital Signs/I&O Vital Signs Date Time Temp Pulse Resp B/P B/P Pulse O2 O2 Flow FiO2 Mean Ox Delivery Rate 11/15 1431 99.2 86 20 132/60 92 Nasal 2.0L Cannula 11/15 1101 86 122/60 11/15 0600 97.6 90 20 110/60 93 Nasal 4.0L Cannula 11/15 0000 Nasal 4.0L Cannula 11/14 2151 97.5 86 20 110/54 91 Nasal 4.0L Cannula 11/14 1902 Nasal 4.0L Cannula Intake & Output 11/15 1600 11/15 0800 11/15 0000 Intake Total 600 1100 1600 Output Total 1 Balance 600 1100 1599 Intake, IV 600 1100 1000 Intake, Oral 600 Output, Urine 1 Physical Exam General Appearance: Cooperative, No Acute Distress HEENT: Atraumatic Neck: Supple Lungs: Clear to Auscultation, Normal Air Movement Abdomen: Normal Bowel Sounds, Soft, No Tenderness Neurological: Normal Tone Extremities: No Edema Current Medications: Current Medications Sig/Eloise Start time Last Medication Dose Route Stop Time Status Admin Atenolol 75 MG DAILY 11/15 1000 AC 11/15 PO 1101 Clopidogrel Bisulfate 75 MG DAILY 11/15 1000 AC 11/15 PO 1101 Escitalopram Oxalate 5 MG DAILY 11/15 1000 AC 11/15 PO 1101 Meropenem 1 GM Q12 11/14 2200 AC 11/15 IV 1102 Meropenem 1 GM Q12 11/14 2200 DC IV Omeprazole 40 MG DAILY AC 11/14 1416 AC 11/14 PO 1813 Patient Medication 1 ED .STK-MED ONE 11/15 1327 [place] Teaching ED 11/15 1328 Sodium Chloride 1,000 ML Q13H 11/14 1900 AC 11/15 IV 0541 Last 24 Hrs of Lab/Federico Results Last 24 Hrs of Labs/Mics: Laboratory Tests 11/15/16 0600: CBC w Diff Cancelled, WBC Cancelled, RBC Cancelled, Hgb Cancelled, Hct Cancelled , MCV Cancelled, MCH Cancelled, RDW Cancelled, Plt Count Cancelled, MPV Cancelled, PUBS MCHC Cancelled Lines/Diet/Fluids Lines: peripheral lines Restraints: none Assessment/Plan Assessment: 89-year-old woman with past medical history significant for hypertension, hyperlipidemia,PVD, hypothyroidism, dementia, PVD s/p Lt. femoral artery stent( 2008), s/p Lt. 1st toe amputation due to gangrene(2007), IBD, GERD sent to the hospital from [place] for worsening of clinical deconditioning and confusion. She was being treated there for UTI. She was lethargic and confused on presentation and was unable to provide the history. Vitals on admission patient had a MAXIMUM TEMPERATURE of 100, no tachypnea, no tachycardia, systolic blood pressure 1:30 to 133 and systolic 60-61, oxygen saturation of 93-95% on 4 L of nasal cannula On examination she was lethargic and only responsive to pain system Hazel, no rashes on skin examination, S1 and S2 audible with regular rhythm, lungs clear to auscultation, abdomen soft nontender audible bowel sounds, and limited grossly intact neurological examination, no bilateral lower extremity edema. Patient was admitted on general medicine floor for the management of following problems Sepsis secondary to UTI/ ESBL- Escherichia coli/ gram-negative bacteremia Patient presented in emergency department with low-grade fever with a leukocytosis 21.2, and recent urine culture positive for ESBL Escherichia coli. She also has a blood culture obtained 3 days prior to admission, positive for gram-negative rods. The most likely source of her positive blood culture is the urinary tract, with positive urine culture. ID consult was obtained and recommended starting the patient on IV meropenem. In order to rule out the possibility of any other intra-abdominal process, with mild increase in bilirubin and alkaline phosphatase, right upper quadrant ultrasound was also ordered which is pending at the moment. Continue with IV antibiotics for now, current morning labs pending. As per ID patient is required at least 2 weeks of treatment with IV antibiotics and placement of PICC line. Altered mental status history of dementia Toxic encephalopathy secondary to sepsis Patient is currently on IV antibiotics Possibility of any acute intracranial change ruled out by CAT scan of the head Hypokalemia Repleted with IV and by mouth potassium Morning Labs pending Patient is full code Patient is on Alps for DVT prophylaxis Patient is on pain management Patient was nothing by mouth pending swallow evaluation Problem List: 1. Bacteremia 2. Leukocytosis 3. Dementia 4. Physical deconditioning Pain Ratin Pain Location: NA Pain Goal: Pain 4 or less Pain Plan: Continue current pain management Tomorrow's Labs & Rationales: CBC for leukocytosis BEP to monitor electrolyte Hepatic function DVT/Prophylaxis: mechanical [place] 11/15/16 1037: Attending MD Review Statement Attending Statement Attending MD Statement: examined this patient, discuss w/resident/PA/LONG TERM CARE PHARMACIST, agreed w/resident/PA/LONG TERM CARE PHARMACIST, discussed with family, reviewed EMR data (avail), discussed with nursing, discussed with case mgmt, reviewed images, amended to note Attending Assessment/Plan: ASSESSMENT 1. Toxic metabolic encephalopathy 2. sepsis 2/2 UTI h/o ESBL 3. Leukocytosis 4. Hypokalemia 5. History of peripheral vascular disease 6. Hypertension controlled 7. Hypothyroidism 8. Dementia History of agitation, psych issues resident of NH facility. PLAN admit to inpatient medical services obtain CT head, imaging reports seen, labs reviewd. start broad spectrum abx, appreciate ID h/o esbl in past sensitive to meropenem. f/u BC, urine culture, RUQ USG. replace electrolytes prn continue supportive care gi/dvt prophylaxis TTS>37 min.
--- NOTE | 2016-11-15 12:46 | PN- Infect Dx ---
Subjective Subjective: MAXIMUM TEMPERATURE 100 without complaints Objective Last 24 Hrs of Vital Signs/I&O Vital Signs Date Time Temp Pulse Resp B/P B/P Pulse O2 O2 Flow FiO2 Mean Ox Delivery Rate 11/15 1101 86 122/60 11/15 0600 97.6 90 20 110/60 93 Nasal 4.0L Cannula 11/15 0000 Nasal 4.0L Cannula 11/14 2151 97.5 86 20 110/54 91 Nasal 4.0L Cannula 11/14 1902 Nasal 4.0L Cannula 11/14 1600 95 Nasal 4.0L Cannula 11/14 1539 97.9 64 20 110/58 95 Nasal 5.0L Cannula 11/14 1500 96 Nasal 4.0L Cannula 11/14 1243 100.0 62 20 133/60 93 Nasal 4.0L Cannula Intake & Output 11/15 1600 11/15 0800 11/15 0000 Intake Total 1100 1600 Output Total 1 Balance 1100 1599 Intake, IV 1100 1000 Intake, Oral 600 Output, Urine 1 Physical Exam Other Physical Findings: She appears comfortable in no acute distress Lungs are clear Heart regular rhythm with no murmur Abdomen is soft, nontender with positive bowel sounds Back no CVA tenderness Results Last 24 Hours of Lab Results: Laboratory Tests 11/15 11/14 0600 1500 Chemistry Lactic Acid Cancelled Hematology CBC w Diff Cancelled WBC Cancelled RBC Cancelled Hgb Cancelled Hct Cancelled MCV Cancelled MCH Cancelled RDW Cancelled Plt Count Cancelled MPV Cancelled PUBS MCHC Cancelled Last 24 Hours of Federico Results: Blood cultures November 14 positive for gram negative rods Blood culture November 11 positive for gram-negative rods Urine culture November 14 greater than 100,000 colonies of gram-negative rods Assessment/Plan Impression: Stable on Meropenem Day 1 of treatment for gram-negative sepsis, most likely of urologic origin, with ESBL producing Escherichia coli isolated from the urine culture sent from the [facility] 3 days prior to admission. A biliary source is also possible with her bilirubin and alk phosphatase elevated on admission. Suggestion: 1. Await right upper quadrant ultrasound 2. Repeat CBC and liver enzymes 3. Follow up final cultures 4. Continue Meropenem 5. Will likely require a PICC
[2016-11-15 14:31] VITALS: BP 132/60
--- NOTE | 2016-11-15 15:01 | NUR ---
LATE ENTRY: PT'S L HEEL NOTED WITH SKIN ALTERATION. NO DGE NOTED. WOUND RN STEPHAN CONTACTED FOR EVALUATION. PENDING WOUND EVAL. PT'S HEELS OFFLOADED. ONCOMING RN TO RESUME CARE FOR PT. SAFETY MAINTAINED.
--- NOTE | 2016-11-15 15:31 | NUR ---
wound care: call received from rn re: skin alteration and need for consult - dr mackenzie present during call - md stated he will evaluate pt and make recommendations accordingly
--- NOTE | 2016-11-15 15:43 | ULTRASOUND REPORT ---
EXAMINATION: US ABDOMEN LIMITED CLINICAL INFORMATION: Transaminitis. Rule out acute pathology versus steatosis.. COMPARISON: CT scan of the abdomen and pelvis dated 09/27/2015. TECHNIQUE: Real-time imaging of the right upper quadrant abdominal viscera. Examination is limited due to patient's altered mental status and inability to lay still. Also, the patient demanded premature termination of the examination. FINDINGS: PANCREAS: Normal. LIVER: Normal. The liver demonstrates normal size, contour and echogenicity. No focal lesion or intrahepatic biliary duct dilatation. Main portal vein is patent with normally directed flow seen. GALLBLADDER: Normal. The gallbladder is physiologically distended. Small 1.3 cm calcified gallstone is seen lodged in the gallbladder neck. No evidence of sludge, polyps, gallbladder wall thickening or pericholecystic fluid. COMMON BILE DUCT: Normal in caliber measuring 0.3 cm in diameter. RIGHT KIDNEY: There is an exophytic 3.5 x 3.0 cm hypoechoic mass in the lower pole of the right kidney. This is incompletely assessed since the patient insisted on premature termination of the examination. Visualized portions appear cystic and would suggest that the hyperdense mass seen on CT scan is a hyperdense cyst this was also noted on an remote exam from 05/31/2007, appearing similar in size. The second lesion seen on CT scan in the mid right kidney is not evaluated on this ultrasound. No hydronephrosis. No renal calculi or focal parenchymal lesions. The kidney measures 10.3 cm in maximum dimension. FREE FLUID: None. IMPRESSION: 1. The liver appears unremarkable with no evidence of hepatic steatosis or focal mass seen. 2. Calcified 1.3 cm gallstone is seen lodged within the gallbladder neck. This is larger compared to 0.5 cm on 05/31/2007. The gallbladder is otherwise unremarkable with no additional imaging findings seen to suspect acute cholecystitis. Close clinical correlation is requested. Depending on clinical circumstances, further assessment with HIDA scan could be performed to evaluate cystic duct patency. 3. Incompletely evaluated exophytic mass in the lower pole of the right kidney, most consistent with a hemorrhagic cyst. 4. Additional mid right renal lesion seen on CT scan is not appreciated on this limited study.
[2016-11-15 21:51] VITALS: BP 130/60
[2016-11-16 06:05] VITALS: BP 130/70
--- NOTE | 2016-11-16 07:33 | PN- Housestaff ---
MANDIE RAZO MD,RUT 11/16/16 0733: Subjective Follow-up For: Gram-negative bacteremia Sepsis of urological origin UTI secondary to ESBL Escherichia coli Complaints: no complaints Subjective: MAXIMUM TEMPERATURE overnight 99.6, no tachycardia. Review of Systems Constitutional: Denies: chills, fever. Cardiovascular: Denies: chest pain. Respiratory: Denies: short of breath. Gastrointestinal: Denies: abdominal pain. Genitourinary: Denies: discharge. Musculoskeletal: Denies: back pain. Objective Last 24 Hrs of Vital Signs/I&O Vital Signs Date Time Temp Pulse Resp B/P B/P Pulse O2 O2 Flow FiO2 Mean Ox Delivery Rate 11/16 0605 99.6 61 20 130/70 98 11/16 0000 Nasal 4.0L Cannula 11/15 2151 99.0 85 20 130/60 93 Nasal 4.0L Cannula 11/15 1431 99.2 86 20 132/60 92 Nasal 2.0L Cannula 11/15 1101 86 122/60 Intake & Output 11/16 1600 11/16 0800 11/16 0000 Intake Total 250 900 Output Total Balance 250 900 Intake, IV 10 300 Intake, Oral 240 600 Number 0 Bowel Movements Physical Exam General Appearance: Cooperative, No Acute Distress Neck: Supple Cardiovascular: Regular Rate, Normal S1, Normal S2 Lungs: Clear to Auscultation Abdomen: Normal Bowel Sounds, Soft, No Tenderness Neurological: Normal Speech, Normal Tone Extremities: No Edema Current Medications: Current Medications Sig/Eloise Start time Last Medication Dose Route Stop Time Status Admin Atenolol 75 MG DAILY 11/15 1000 AC 11/15 PO 1101 Cholecalciferol 400 IU DAILY 11/16 1000 AC PO Clopidogrel Bisulfate 75 MG DAILY 11/15 1000 AC 11/15 PO 1101 Escitalopram Oxalate 5 MG DAILY 11/15 1000 AC 11/15 PO 1101 Famotidine 20 MG DAILY 11/15 1725 AC 11/15 PO 1855 Levothyroxine Sodium 0.1 MG DAILY AC 11/15 1725 AC 11/16 PO 0504 Melatonin 5 MG AT BEDTIME 11/15 2200 AC 11/15 PO 2038 Meropenem 1 GM Q12 11/14 2200 AC 11/15 IV 2038 Multivitamins 1 TAB DAILY 11/15 1725 AC 11/15 Therapeutic PO 1854 Omeprazole 40 MG DAILY AC 11/14 1416 AC 11/16 PO 0504 Patient Medication 1 ED .STK-MED ONE 11/15 1327 [place] Teaching ED 11/15 1328 Polyethylene Glycol 17 GM DAILY 11/15 1726 11/15 PO 1855 Potassium Chloride 40 MEQ ONCE ONE 11/15 1745 DC 11/15 PO 11/15 1746 1855 Sodium Chloride 1,000 ML Q13H 11/14 1900 [place] 11/15 IV 0541 Trazodone HCl 50 MG DAILY 11/15 1726 11/15 PO 1855 Last 24 Hrs of Lab/Federico Results Last 24 Hrs of Labs/Mics: Laboratory Tests 11/16/1628: Sodium Pending, Potassium Pending, Chloride Pending, Carbon Dioxide Pending, Anion Gap Pending, BUN Pending, Creatinine Pending, BUN/Creatinine Ratio Pending , Total Bilirubin Pending, Direct Bilirubin Pending, AST Pending, ALT Pending, Alkaline Phosphatase Pending, Total Protein Pending, Albumin Pending, CBC w Diff Pending, WBC Pending, RBC Pending, Hgb Pending, Hct Pending, MCV Pending, MCH Pending, RDW Pending, Plt Count Pending, MPV Pending, PUBS MCHC Pending Lines/Diet/Fluids Lines: peripheral lines Restraints: none Assessment/Plan Assessment: 89-year-old woman with past medical history significant for hypertension, hyperlipidemia,PVD, hypothyroidism, dementia, PVD s/p Lt. 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 She was being treated there for UTI. She was lethargic and confused on presentation and was unable to provide the history. Vitals on admission patient had a MAXIMUM TEMPERATURE of 100, no tachypnea, no tachycardia, systolic blood pressure 130 to 133 and systolic 60-61, oxygen saturation of 93-95% on 4 L of nasal cannula On examination she was lethargic and only responsive to pain system Hazel, no rashes on skin examination, S1 and S2 audible with regular rhythm, lungs clear to auscultation, abdomen soft nontender audible bowel sounds, and limited grossly intact neurological examination, no bilateral lower extremity edema. Patient was admitted on general medicine floor for the management of following problems Sepsis secondary to UTI/ ESBL- Escherichia coli/ gram-negative bacteremia Patient presented in emergency department with low-grade fever with a leukocytosis 21.2, and recent urine culture positive for ESBL Escherichia coli. She also has a blood culture obtained 3 days prior to admission, positive for gram-negative rods. The most likely source of her positive blood culture is the urinary tract, with positive urine culture. ID consult was obtained and recommended starting the patient on IV meropenem. In order to rule out the possibility of any other intra-abdominal process, with mild increase in bilirubin and alkaline phosphatase, right upper quadrant ultrasound was also ordered which is pending at the moment. Continue with IV antibiotics for now, current morning labs pending. Ultrasound showed calcified 1.3 cm gallstone lodged within the gallbladder neck. Larger as compared to 0.5 cm in 2008. No findings of acute cholecystitis. No evidence of sludge, polyps, gallbladder wall thickening or pericholecystic fluid. Exophytic mass in the lower lobe of the right kidney consistent with hemorrhagic cyst. As per ID patient is required at least 2 weeks of treatment with IV antibiotics and placement of PICC line. Altered mental status history of dementia Toxic encephalopathy secondary to sepsis Patient is currently on IV antibiotics Possibility of any acute intracranial change ruled out by CAT scan of the head Hypokalemia Repleted with by mouth potassium Will recheck the labs in the evening Patient is full code Patient is on Alps for DVT prophylaxis Patient is on pain management Patient was nothing by mouth pending swallow evaluation Problem List: 1. Leukocytosis 2. UTI (urinary tract infection) 3. 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 Toxic metabolic encephalopathy 2. sepsis 2/2 UTI h/o ESBL 3. Leukocytosis improving 4. Hypokalemia 5. History of peripheral vascular disease 6. Hypertension controlled 7. Hypothyroidism 8. Dementia History of agitation, psych issues resident of [facility] facility. 9. Hypernatremia started on D5 1/2 NS. PLAN admit to inpatient medical services negative CT head, imaging reports seen, labs reviewd. c/w broad spectrum abx, appreciate ID h/o esbl in past sensitive to meropenem. f /u BC+ , urine culture +, RUQ USG calcified gallstone at neck gallbladder replace electrolytes prn , follow Na levels. continue supportive care, pureed/nectar diet as per speech/swallow gi/dvt prophylaxis.
[2016-11-16 08:03] LABS: ABSOLUTE BASOPHIL COUNT 0 /CUMM (0.0-0.2); ABSOLUTE EOSINOPHIL COUNT 0.3 /CUMM (0.0-0.7); ABSOLUTE GRANULOCYTE CT 13.5 /CUMM (1.4-6.5); ABSOLUTE LYMPH COUNT 1.2 /CUMM (1.2-3.4); ABSOLUTE MONOCYTE COUNT 1.3 /CUMM (0.10-0.60); BASOPHIL % 0.1 % (0.0-2.0); EOSINOPHIL % 1.8 % (0-5); GRANULOCYTE % 82.9 % (42.2-75.2); HEMATOCRIT 33.7 % (37-47); MEAN CORPUSCULAR HGB 29.6 PG (27.0-31.0); MEAN CORPUSCULAR HGB CONC 32.9 G/DL (33.0-37.0); MEAN PLATELET VOLUME 11.2 FL (7.4-10.4); PLATELET COUNT 195 /CUMM (130-400); RBC DISTRIBUTION WIDTH 14.4 % (11.5-14.5); RED BLOOD CELL CT 3.75 /CUMM (4.20-5.40); WHITE BLOOD CELL COUNT 16.3 /CUMM (4.8-10.8)
--- NOTE | 2016-11-16 08:34 | Cons- Wound Care ---
General Information and HPI Consulting Request Date of Consult: 11/16/16 Requested By: HANS METZ MD Reason for Consult: Left heel ulcer present on admission ulcer of the coccyx present on admission History of Present Illness: 89-year-old woman admitted with sepsis of urologic origin. Patient has history of severe peripheral vascular disease status post stent placement. She is unable to provide any meaningful history. Request for evaluation of chronic left heel ulcer and small area of erythema over the coccyx. Patient has been on a low air loss mattress. Allergies/Medications Allergies: Coded Allergies: Penicillins (UNKNOWN PER PT DOES NOT REMEMBER 09/27/15) celecoxib (From CELEBREX) (UNKNOWN PER PT DOES NOT REMEMBER 09/27/15) diazepam (UNKNOWN PER PT DOES NOT REMEMBER 09/27/15) Home Med List: Acetaminophen (Tylenol Extra Strength) 500 MG TABLET 1 TAB PO BID PAIN ( Reported) Reason to Stop at ADM: ON PRN TYLENOL, AMS CURRENTLY, NO PAIN Amino Acids/Protein Hydrolys (Prosource No Carb Liquid Pkt) 30 ML LIQUID.PKT 30 ML PO BID SUPPLEMENT (Reported) Ascorbic Acid (Vitamin C) 500 MG TABLET 500 MG PO BID supplement Atenolol 25 MG TABLET 75 MG PO DAILY HTN (Reported) Cholecalciferol (Vitamin D3) (Vitamin D3) 400 UNIT TABLET 400 IU PO DAILY Supplement Clopidogrel Bisulfate (Clopidogrel) 75 MG TABLET 1 TAB PO DAILY BLOOD THINNER (Reported) Escitalopram Oxalate 5 MG TABLET 1 TAB PO DAILY Depression (Reported) Famotidine (Pepcid) 20 MG TABLET 1 TAB PO DAILY GERD (Reported) Levothyroxine Sodium 100 MCG TABLET 1 TAB PO DAILY THYROID (Reported) Melatonin 5 MG TAB.SUBL 5 MG PO AT BEDTIME sleep Reason to Stop at ADM: AMS Multivitamin (One Daily Multivitamin) 1 EACH TABLET 1 TAB PO DAILY supplement Nystatin 100,000 UNIT/1 ML ORAL.SUSP 5 ML PO 4 TIMES/DAY oral candidiasis Polyethylene Glycol 3350 (Miralax) 17 GM POWD.PACK 1 PAC PO DAILY CONSTIPATION (Reported) dissolve in water Trazodone HCl 50 MG TABLET 50 MG PO DAILY ANXIETY (Reported) Review of Systems Review of Systems: Noncontributory Past History Travel History Traveled to [place] past 21 day No Medical History Neurological: dementia EENT: NONE Cardiovascular: hypertension, hyperlipidemia, PVD Respiratory: NONE Gastrointestinal: GERD, irritable bowel syndrome Hepatic: NONE Renal: NONE Musculoskeletal: ARTHIRITIS Psychiatric: NONE Endocrine: HYPOTHYROID Blood Disorders: NONE Cancer(s): NONE MENAGERIE CARETAKER/Reproductive: NONE Other Medical Hx: hypertension, GERD, history of hypercholesterolemia, hypothyroidism, history of left carpal tunnel syndrome, history of left leg cellulitis in 2007, history of IBS, PVD s/p stent placement in left superficial femoral artery 2008, hysterectomy, history of endoscopic carpal tunnel release operation, 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 Surgical History Surgical History: L 1ST TOE AMPUTATION Family History Relations & Conditions If Any: BROTHER (DEMENTIA). SISTER (CAD). Psychosocial History Services at Home: None Primary Language: Azeri Smoking Status: Unknown If Ever Smoked ETOH Use: denies use Functional Ability Ambulation: unobtainable Exam & Diagnostic Data Vital Signs and I&O Vital Signs Result Date Time Pulse Ox 98 11/16 06 B/P 130/70 11/16 06 Temp 99.6 11/16 06 Pulse 61 11/16 0605 Resp 20 11/16 06 O2 Delivery Nasal Cannula 11/16 0000 O2 Flow Rate 4.0L 11/16 0000 Intake & Output 11/16 0000 11/15 1600 11/15 0800 Intake Total 808 167 1223 Output Total Balance 668 831 3917 Intake, IV 793 494 7999 Intake, Oral 600 Exam of the left heel shows there to be a unstageable ulcer with dry slough there is no drainage undermining sinus tracking exposed bone distal pulses are absent. The area is approximately 1 x 1 cm. Over the coccyx is a stage I pressure ulcer measuring approximately 2 x 2 cm the overlying skin is intact there is erythema which does not fully sun. Note the patient has a reduced albumin. Assessment/Plan Impression/Plan: 89-year-old woman admitted with urologic sepsis secondary to gram-negative rods has had a chronic left heel ulcer which is unstageable with dry slough no drainage. There is well a small area of erythema the coccyx which is likely a stage I pressure ulcer. Patient is on low air loss mattress would recommend offloading heel and coccyx D extent possible. No specific dressings are required though if the patient remains incontinent use of a barrier cream over the coccyx would be appropriate.correct nutrition Consult Acknowledgment - Thank you for your consult request.
[2016-11-16 14:15] VITALS: BP 126/70
--- NOTE | 2016-11-16 15:27 | Discharge Summary ---
Visit Information Visit Dates Admission Date: 11/14/16 Discharge Date: 11/18/16 Hospital Course Course Attending Physician: HANS METZ MD Primary Care Physician: KARELY PARIS MD Consulting Request: Consulting Specialty: Infectious Disease Hospital Course: 89-year-old woman with past medical history significant for hypertension, hyperlipidemia,PVD, hypothyroidism, dementia, PVD s/p Lt. 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 She was being treated there for UTI. She was lethargic and confused on presentation and was unable to provide the history. Vitals on admission patient had a MAXIMUM TEMPERATURE of 100, no tachypnea, no tachycardia, systolic blood pressure 130 to 133 and systolic 60-61, oxygen saturation of 93-95% on 4 L of nasal cannula On examination she was lethargic and only responsive to pain system Hazel, no rashes on skin examination, S1 and S2 audible with regular rhythm, lungs clear to auscultation, abdomen soft nontender audible bowel sounds, and limited grossly intact neurological examination, no bilateral lower extremity edema. Patient was admitted on general medicine floor for the management of following problems Sepsis secondary to UTI/ ESBL- Escherichia coli/ gram-negative bacteremia Patient presented in emergency department with low-grade fever with a leukocytosis 21.2, and recent urine culture positive for ESBL Escherichia coli. She also has a blood culture obtained 3 days prior to admission, positive for gram-negative rods. The most likely source of her positive blood culture was the urinary tract, with positive urine culture. ID consult was obtained and recommended starting the patient on IV meropenem. In order to rule out the possibility of any other intra-abdominal process, with mild increase in bilirubin and alkaline phosphatase, right upper quadrant ultrasound was also ordered. Ultrasound showed calcified 1.3 cm gallstone lodged within the gallbladder neck. Larger as compared to 0.5 cm in 2008. No findings of acute cholecystitis. No evidence of sludge, polyps, gallbladder wall thickening or pericholecystic fluid. Exophytic mass in the lower lobe of the right kidney consistent with hemorrhagic cyst. However patient is non-tender on physical exam and Hernandez's was negative. As per ID patient is required at least 2 weeks of treatment with IV antibiotics ( started on ) and is s/p placement of PICC line. She should have weekly BEP while on Meropenem and a repeat CBC in a week Altered mental status history of dementia Toxic encephalopathy secondary to sepsis. Possibility of any acute intracranial change was ruled out by CAT scan of the head Hypokalemia Repleted with by mouth potassium Left heel ulcer present on admission ulcer of the coccyx present on admission Patient was on low air loss mattress. Evaluated by Dr. Rodriguez who would recommended offloading heel and coccyx. No specific dressings are required though if the patient remains incontinent use of a barrier cream over the coccyx would be appropriate. Patient was full code Patient was on Alps for DVT prophylaxis Patient was on pain management Patient was nothing by mouth pending swallow evaluation, and then started on pur Allergies: Coded Allergies: Penicillins (UNKNOWN PER PT DOES NOT REMEMBER 09/27/15) celecoxib (From CELEBREX) (UNKNOWN PER PT DOES NOT REMEMBER 09/27/15) diazepam (UNKNOWN PER PT DOES NOT REMEMBER 09/27/15) Significant Procedures: SERVICE DATE: 11/14/16 EXAM TYPE: RAD - XRY-PORTABLE CHEST XRAY FINDINGS: The heart is normal in size. There is no congestion or focal consolidation. The bony thorax is unremarkable. IMPRESSION: No acute cardiopulmonary process. SERVICE DATE: 11/14/16-1300 EXAM TYPE: CAT - CT HEAD WO IV CONTRAST te territorial infarct. There is likely some microangiopathy. There is no definite fracture or fluid level. This represents an interval improvement in the right maxillary sinus. IMPRESSION: 1. Limited exam. 2. No acute infarct. 3. No intracranial hemorrhage or definite mass SERVICE DATE: 11/15/16-599 EXAM TYPE: US - US-LIMITED ABDOMEN FINDINGS: PANCREAS: Normal. LIVER: Normal. The liver demonstrates normal size, contour and echogenicity. No focal lesion or intrahepatic biliary duct dilatation. Main portal vein is patent with normally directed flow seen. GALLBLADDER: Normal. The gallbladder is physiologically distended. Small 1.3 cm calcified gallstone is seen lodged in the gallbladder neck. No evidence of sludge, polyps, gallbladder wall thickening or pericholecystic fluid. COMMON BILE DUCT: Normal in caliber measuring 0.3 cm in diameter. RIGHT KIDNEY: There is an exophytic 3.5 x 3.0 cm hypoechoic mass in the lower pole of the right kidney. This is incompletely assessed since the patient insisted on premature termination of the examination. Visualized portions appear cystic and would suggest that the hyperdense mass seen on CT scan is a hyperdense cyst this was also noted on an remote exam from 05/31/2007, appearing similar in size. The second lesion seen on CT scan in the mid right kidney is not evaluated on this ultrasound. No hydronephrosis. No renal calculi or focal parenchymal lesions. The kidney measures 10.3 cm in maximum dimension. FREE FLUID: None. IMPRESSION: 1. The liver appears unremarkable with no evidence of hepatic steatosis or focal mass seen. 2. Calcified 1.3 cm gallstone is seen lodged within the gallbladder neck. This is larger compared to 0.5 cm on 05/31/2007. The gallbladder is otherwise unremarkable with no additional imaging findings seen to suspect acute cholecystitis. Close clinical correlation is requested. Depending on clinical circumstances, further assessment with HIDA scan could be performed to evaluate cystic duct patency. 3. Incompletely evaluated exophytic mass in the lower pole of the right kidney, most consistent with a hemorrhagic cyst. 4. Additional mid right renal lesion seen on CT scan is not appreciated on this limited study. SERVICE DATE: 11/17/16 EXAM TYPE: RAD - XRY-PORTABLE CHEST XRAY FINDINGS: There is a right-sided PICC line which terminates near the cavoatrial junction. The lungs are well expanded. Mild chronic interstitial changes. No consolidation. No edema or effusion. No pneumothorax. The cardiomediastinal silhouette is unchanged. IMPRESSION: Right-sided PICC line terminating near the cavoatrial junction. No acute pulmonary findings. Disposition Summary Disposition Principal Diagnosis: Sepsis secondary to UTI/ ESBL- Escherichia coli/ gram-negative bacteremia Altered mental status Additional Diagnosis: History of dementia HTN GERD Dysphagia PVD s/p Lt femoral stent IN IBD Hypothyroidism HLP Discharge Disposition: SNF Discharge Instructions General Discharge Information Code Status: Full Code Patient's Diet: Pure consistency solids and honey liquid consistency diet Patient's Activity: As tolerated Follow-Up Instructions/Appts: Please follow up with your PCP in one week. Please have a repeat CBC in one week. Please continue Meropenem through 11/28/16 and have weekly BEP while on the medications. . Medications at Discharge Discharge Medications: Continue taking these medications: Clopidogrel Bisulfate (Clopidogrel) 75 MG TABLET 1 Tablet ORAL DAILY Qty = 90 Comments: Last Taken: 11/18/15 Time: 1000AM Levothyroxine Sodium (Levothyroxine Sodium) 100 MCG TABLET 1 Tablet ORAL DAILY Qty = 90 Comments: IV FORM GIVEN 11/18/15 @1000AM Cholecalciferol (Vitamin D3) (Vitamin D3) 400 UNIT TABLET 400 International Unit ORAL DAILY Days = 30 Comments: Last Taken: 11/18/15 Time:1000AM Ascorbic Acid (Vitamin C) 500 MG TABLET 500 Milligram ORAL TWICE DAILY Qty = 30 Comments: Last Taken: 11/18/15 Time: 1000AM Multivitamin (One Daily Multivitamin) 1 EACH TABLET 1 Tablet ORAL DAILY Qty = 30 Comments: Last Taken: 11/18/15 Time: 1000AM Acetaminophen (Tylenol Extra Strength) 500 MG TABLET 1 Tablet ORAL TWICE DAILY Instructions: Reason to Stop at ADM: ON PRN TYLENOL, AMS CURRENTLY, NO PAIN Comments: NOT GIVEN IN HOSPITAL Amino Acids/Protein Hydrolys (Prosource No Carb Liquid Pkt) 30 ML LIQUID.PKT 30 Milliliters ORAL TWICE DAILY Comments: NOT GIVEN IN HOSPITAL Polyethylene Glycol 3350 (Miralax) 17 GM POWD.PACK 1 Packet ORAL DAILY Instructions: dissolve in water Comments: Last Taken: 11/18/15 Time: 1000AM Famotidine (Pepcid) 20 MG TABLET 1 Tablet ORAL DAILY Comments: Last Taken: 11/18/15 Time: 1000AM Melatonin (Melatonin) 5 MG TAB.SUBL 5 Milligram ORAL AT BEDTIME Qty = 30 Instructions: Reason to Stop at ADM: AMS Comments: Last Taken:11/17/15 1000AM Nystatin (Nystatin) 100,000 UNIT/1 ML ORAL.SUSP 5 Milliliters ORAL 4 TIMES A DAY Days = 30 Trazodone HCl (Trazodone HCl) 50 MG TABLET 50 Milligram ORAL DAILY Atenolol (Atenolol) 25 MG TABLET 75 Milligram ORAL DAILY Escitalopram Oxalate (Escitalopram Oxalate) 5 MG TABLET 1 Tablet ORAL DAILY Start taking the following new medications: Meropenem (Meropenem) 1 GRAM VIAL 1 Gram INTRAVEN EVERY 12 HOURS Qty = 11 No Refills Instructions: Please adminsiter through 11/28/2016 Copies To: MAYANK ROBERTSON,GERARD Horner; [place] ROBERTSON,KARELY; SANTIAGO ROBERTSON,LAURA Rivera Attending MD Review Statement Documenting Attending: FRANCO ROBERTSON,[place]
--- NOTE | 2016-11-16 15:30 | PN- Infect Dx ---
Subjective Subjective: Afebrile. She complains of bilateral hip pain. Objective Last 24 Hrs of Vital Signs/I&O Vital Signs Date Time Temp Pulse Resp B/P B/P Pulse O2 O2 Flow FiO2 Mean Ox Delivery Rate 11/16 1415 98.7 88 20 126/70 94 Nasal 2.0L Cannula 11/16 0605 99.6 61 20 130/70 98 11/16 0000 Nasal 4.0L Cannula 11/15 2151 99.0 85 20 130/60 93 Nasal 4.0L Cannula Intake & Output 11/16 1600 11/16 0800 11/16 0000 Intake Total 250 900 Output Total Balance 250 900 Intake, IV 10 300 Intake, Oral 240 600 Number 0 Bowel Movements Physical Exam Other Physical Findings: She is awake and alert in no acute distress Lungs are clear Heart regular rhythm with no murmur Abdomen is soft, nontender with positive bowel sounds Back no CVA tenderness Extremities no joint inflammation Results Last 24 Hours of Lab Results: Laboratory Tests 11/16 0728 Chemistry Sodium (137 - 145 mmol/L) 147 H Potassium (3.5 - 5.1 mmol/L) 3.4 L Chloride (98 - 107 mmol/L) 113 H Carbon Dioxide (22 - 30 mmol/L) 28 Anion Gap (5 - 16) 5 BUN (7 - 17 mg/dL) 27 H Creatinine (0.5 - 1.0 mg/dL) 0.8 Estimated GFR (>60 ml/min) > 60 BUN/Creatinine Ratio (7 - 25 %) 33.8 H Total Bilirubin (0.2 - 1.3 mg/dL) 0.9 Direct Bilirubin (< 0.4 mg/dL) 0.3 AST (14 - 36 U/L) 34 ALT (9 - 52 U/L) 38 Alkaline Phosphatase (<127 U/L) 119 Total Protein (6.3 - 8.2 g/dL) 5.2 L Albumin (3.5 - 5.0 g/dL) 2.2 L Hematology CBC w Diff NO MAN DIFF REQ WBC (4.8 - 10.8 /CUMM) 16.3 H RBC (4.20 - 5.40 /CUMM) 3.75 L Hgb (12.0 - 16.0 G/DL) 11.1 L Hct (37 - 47 %) 33.7 L MCV (81.0 - 99.0 FL) 90.0 MCH (27.0 - 31.0 PG) 29.6 RDW (11.5 - 14.5 %) 14.4 Plt Count (130 - 400 /CUMM) 195 MPV (7.4 - 10.4 FL) 11.2 H Gran % (42.2 - 75.2 %) 82.9 H Lymphocytes % (20.5 - 51.1 %) 7.3 L Monocytes % (1.7 - 9.3 %) 7.9 Eosinophils % (0 - 5 %) 1.8 Basophils % (0.0 - 2.0 %) 0.1 Absolute Granulocytes (1.4 - 6.5 /CUMM) 13.5 H Absolute Lymphocytes (1.2 - 3.4 /CUMM) 1.2 Absolute Monocytes (0.10 - 0.60 /CUMM) 1.3 H Absolute Eosinophils (0.0 - 0.7 /CUMM) 0.3 Absolute Basophils (0.0 - 0.2 /CUMM) 0 PUBS MCHC (33.0 - 37.0 G/DL) 32.9 L Last 24 Hours of Federico Results: Blood cultures November 11 one bottle positive for ESBL producing Escherichia coli sensitive to Meropenem Blood cultures 2 November 14 positive for gram-negative rods Urine culture November 14 greater than 100,000 colonies of ESBL producing Escherichia coli sensitive to Meropenem Recent Imaging Studies: Right upper quadrant ultrasound November 15 reveals a physiologically distended gallbladder with a small 1.3 cm calcified gallstone lodged in the gallbladder neck with no evidence of sludge, polyps, gallbladder wall thickening or pericholecystic fluid Assessment/Plan Impression: Stable on Meropenem Day 2 of treatment for ESBL producing Escherichia coli sepsis presumably of urologic origin. A biliary source is also possible, particular with her ultrasound findings and her elevated bilirubin and alk phosphatase on admission, though further workup may not be warranted in this elderly, debilitated, demented patient. Suggestion: 1. Further evaluation of the biliary tree, for example with a HIDA scan, if she develops GI symptoms or abdominal tenderness 2. Would proceed with placement of a PICC 3. Continue Meropenem to complete a two-week course of treatment
--- NOTE | 2016-11-16 19:58 | NUR ---
PT ALERT TO SELF ONLY. CONSENT OBTAINED FOR PICC TOMORROW. TO EVENTS THROUGHOUT SHIFT.
[2016-11-16 21:47] VITALS: BP 136/62
--- NOTE | 2016-11-16 23:01 | NUR ---
PATIENT IS DROWSY BUT AROUSABLE. ON 4LO2 VIA NC. NO DISTRESS NOTED VITAL SIGNS STABLE. DENIES CHEST PAIN. +PULSES. WOUND TO L HEEL OPEN TO AIR. COCCYX RED AND BLANCHABLE. PATIENT TURNED AND REPOSITIONED. NO DISCOMFORT NOTED. RESTING AT THIS TIME. SAFETY MAINTAINED.
[2016-11-17 06:49] VITALS: BP 140/70
--- NOTE | 2016-11-17 08:02 | PN- Housestaff ---
MANDIE RAZO MD,RUT 11/17/16 0800: Subjective Follow-up For: Gram-negative bacteremia Sepsis of urological origin UTI secondary to ESBL Escherichia coli Complaints: no complaints Subjective: Patient was comfortably lying in the bed. She did not complain of any acute chest pain or shortness of breath. She remained afebrile overnight. She is currently requiring 4 L of oxygen and will taper the oxygen down to her baseline 2-4 L Review of Systems Constitutional: Denies: chills, fever. EENTM: Denies: visual changes. Cardiovascular: Denies: chest pain. Respiratory: Denies: cough, short of breath. Gastrointestinal: Denies: abdominal pain, nausea, vomiting. Genitourinary: Denies: discharge. Musculoskeletal: Denies: back pain. Objective Last 24 Hrs of Vital Signs/I&O Vital Signs Date Time Temp Pulse Resp B/P B/P Pulse O2 O2 Flow FiO2 Mean Ox Delivery Rate 11/17 0649 97.8 90 18 140/70 94 Nasal 4.0L Cannula 11/17 0000 94 Nasal 4.0L Cannula 11/16 2147 97.9 93 20 136/62 94 11/16 1600 Nasal 4.0L Cannula 11/16 1415 98.7 88 20 126/70 94 Nasal 2.0L Cannula Intake & Output 11/17 1600 11/17 0800 11/17 0000 Intake Total 700 100 Output Total Balance 700 100 Intake, IV 460 Intake, Oral 240 100 Number 0 1 Bowel Movements Physical Exam General Appearance: Alert, Cooperative, No Acute Distress Skin: No Rashes HEENT: Atraumatic Neck: Supple Cardiovascular: Regular Rate, Normal S1, Normal S2, No Murmurs Lungs: Clear to Auscultation, Normal Air Movement Abdomen: Normal Bowel Sounds, Soft, No Tenderness Extremities: No Cyanosis, No Edema Vascular: Normal Pulses Current Medications: Current Medications Sig/Eloise Start time Last Medication Dose Route Stop Time Status Admin Atenolol 75 MG DAILY 11/15 1000 AC 11/16 PO 1009 Cholecalciferol 400 IU DAILY 11/16 1000 AC 11/16 PO 1009 Clopidogrel Bisulfate 75 MG DAILY 11/15 1000 AC 11/16 PO 1010 Dextrose/Sodium 1,000 ML Q13H 11/16 1015 DC 11/16 Chloride IV 11/16 2314 1015 Escitalopram Oxalate 5 MG DAILY 11/15 1000 AC 11/16 PO 1010 Famotidine 20 MG DAILY 11/15 1725 AC 11/16 PO 1010 Levothyroxine Sodium 0.1 MG DAILY AC 11/15 1725 AC 11/17 PO 0516 Melatonin 5 MG AT BEDTIME 11/15 2200 AC 11/16 PO 2207 Meropenem 1 GM Q12 11/14 2200 AC 11/16 IV 2207 Multivitamins 1 TAB DAILY 11/15 1725 AC 11/16 Therapeutic PO 1009 Omeprazole 40 MG DAILY AC 11/14 1416 AC 11/17 PO 0516 Polyethylene Glycol 17 GM DAILY 11/15 1726 AC 11/16 PO 1010 Potassium Chloride 40 MEQ ONCE ONE 11/16 1015 DC 11/16 PO 11/16 1016 1118 Sodium Chloride 1,000 ML Q20H 11/16 1545 CAN IV 11/17 1144 Trazodone HCl 50 MG QPM 11/16 2200 AC 11/16 PO 2207 Trazodone HCl 50 MG DAILY 11/15 1726 DC 11/15 PO 1855 Last 24 Hrs of Lab/Federico Results Last 24 Hrs of Labs/Mics: Laboratory Tests 11/16/16 1935: Anion Gap 8, Estimated GFR > 60, BUN/Creatinine Ratio 31.3 H Microbiology 11/16 1130 BLOOD: Blood Culture - RECD 11/16 1005 BLOOD: Blood Culture - CAN Cancelled: Cancelled via OE: Per MD Decision Lines/Diet/Fluids Lines: peripheral lines Restraints: none Assessment/Plan Assessment: 89-year-old woman with past medical history significant for hypertension, hyperlipidemia,PVD, hypothyroidism, dementia, PVD s/p Lt. 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 She was being treated there for UTI. She was lethargic and confused on presentation and was unable to provide the history. Vitals on admission patient had a MAXIMUM TEMPERATURE of 100, no tachypnea, no tachycardia, systolic blood pressure 130 to 133 and systolic 60-61, oxygen saturation of 93-95% on 4 L of nasal cannula On examination she was lethargic and only responsive to pain system Hazel, no rashes on skin examination, S1 and S2 audible with regular rhythm, lungs clear to auscultation, abdomen soft nontender audible bowel sounds, and limited grossly intact neurological examination, no bilateral lower extremity edema. Patient was admitted on general medicine floor for the management of following problems Sepsis secondary to UTI/ ESBL- Escherichia coli/ gram-negative bacteremia Patient presented in emergency department with low-grade fever with a leukocytosis 21.2, and recent urine culture positive for ESBL Escherichia coli. She also has a blood culture obtained 3 days prior to admission, positive for gram-negative rods. The most likely source of her positive blood culture is the urinary tract, with positive urine culture. ID consult was obtained and recommended starting the patient on IV meropenem. In order to rule out the possibility of any other intra-abdominal process, with mild increase in bilirubin and alkaline phosphatase, right upper quadrant ultrasound was also ordered which is pending at the moment. Continue with IV antibiotics for now, current morning labs pending. Ultrasound showed calcified 1.3 cm gallstone lodged within the gallbladder neck. Larger as compared to 0.5 cm in 2008. No findings of acute cholecystitis. No evidence of sludge, polyps, gallbladder wall thickening or pericholecystic fluid. Exophytic mass in the lower lobe of the right kidney consistent with hemorrhagic cyst. As per ID patient is required at least 2 weeks of treatment with IV antibiotics and placement of PICC line. PICC Line Consent Conservator was called yesterday and PICC line consent was obtained in the presence of Dari Curiel MD. Patient will get the PICC line today Altered mental status history of dementia Toxic encephalopathy secondary to sepsis Resolved Patient is currently on IV antibiotics Possibility of any acute intracranial change ruled out by CAT scan of the head Hypokalemia Repleted with by mouth potassium Will recheck the labs Patient is full code Patient is on Alps for DVT prophylaxis Patient is on pain management Patient was nothing by mouth pending swallow evaluation Problem List: 1. Bacteremia 2. Leukocytosis 3. Sepsis Pain Ratin Pain Location: NA Pain Goal: Pain 4 or less Pain Plan: Continue pain management Tomorrow's Labs & Rationales: CBC for leukocytosis BEP for electrolytes Consulting Request: Consulting Specialty: Infectious Disease [place] GAMEZ 11/17/16 0908: Attending MD Review Statement Attending Statement Attending MD Statement: examined this patient, discuss w/resident/PA/GLOST TILE SHADER, agreed w/resident/PA/GLOST TILE SHADER, discussed with family, reviewed EMR data (avail), discussed with nursing, discussed with case mgmt, reviewed images, amended to note Attending Assessment/Plan: ASSESSMENT 1. Toxic metabolic encephalopathy 2. sepsis 2/2 UTI h/o ESBL with gram negative bacteremia 3. Leukocytosis improving 4. Hypokalemia 5. History of peripheral vascular disease 6. Hypertension controlled 7. Hypothyroidism 8. Dementia History of agitation, psych issues resident of NH facility. 9. Hypernatremia started on D5 1/2 NS. PLAN admit to inpatient medical services negative CT head, imaging reports seen, labs reviewd. c/w broad spectrum abx, appreciate ID h/o esbl in past sensitive to meropenem. f /u BC+ , urine culture +, RUQ USG calcified gallstone at neck gallbladder replace electrolytes prn , continue supportive care, pureed/nectar diet as per speech/swallow gi/dvt prophylaxis. anticipate d/c planning.
--- NOTE | 2016-11-17 10:12 | RADIOLOGY REPORT ---
EXAMINATION: XR PORTABLE CHEST CLINICAL INFORMATION: PICC line placement. COMPARISON: 11/14/2016 TECHNIQUE: Portable frontal view of the chest was obtained. FINDINGS: There is a right-sided PICC line which terminates near the cavoatrial junction. The lungs are well expanded. Mild chronic interstitial changes. No consolidation. No edema or effusion. No pneumothorax. The cardiomediastinal silhouette is unchanged. IMPRESSION: Right-sided PICC line terminating near the cavoatrial junction. No acute pulmonary findings.
--- NOTE | 2016-11-17 13:34 | PN- Infect Dx ---
Subjective Subjective: Afebrile without complaints Objective Last 24 Hrs of Vital Signs/I&O Vital Signs Date Time Temp Pulse Resp B/P B/P Pulse O2 O2 Flow FiO2 Mean Ox Delivery Rate 11/17 1040 90 140/70 11/17 0649 97.8 90 18 140/70 94 Nasal 4.0L Cannula 11/17 0000 94 Nasal 4.0L Cannula 11/16 2147 97.9 93 20 136/62 94 11/16 1600 Nasal 4.0L Cannula 11/16 1415 98.7 88 20 126/70 94 Nasal 2.0L Cannula Intake & Output 11/17 1600 11/17 0800 11/17 0000 Intake Total 700 100 Output Total Balance 700 100 Intake, IV 460 Intake, Oral 240 100 Number 0 1 Bowel Movements Patient 175 lb Weight Physical Exam Other Physical Findings: She appears comfortable in no acute distress Abdomen is soft, nontender with positive bowel sounds Back no CVA tenderness Extremities PICC in the right upper extremity in place Results Last 24 Hours of Lab Results: Laboratory Tests 11/16 1934 Chemistry Sodium (137 - 145 mmol/L) 145 Potassium (3.5 - 5.1 mmol/L) 3.8 Chloride (98 - 107 mmol/L) 110 H Carbon Dioxide (22 - 30 mmol/L) 27 Anion Gap (5 - 16) 8 BUN (7 - 17 mg/dL) 25 H Creatinine (0.5 - 1.0 mg/dL) 0.8 Estimated GFR (>60 ml/min) > 60 BUN/Creatinine Ratio (7 - 25 %) 31.3 H Last 24 Hours of Federico Results: Blood culture November 16 negative Assessment/Plan Impression: Stable on Meropenem Day 3 of treatment for ESBL producing Escherichia coli sepsis presumably of urologic origin. A biliary source is also possible, particularly with her ultrasound findings and her elevated bilirubin and alk phosphatase on admission, though further workup may not be warranted in this elderly, debilitated, demented patient. Suggestion: 1. Further evaluation of the biliary tree, for example with a HIDA scan, if she develops GI symptoms or abdominal tenderness 2. Continue Meropenem to complete a 2 week course of treatment
[2016-11-17 14:40] VITALS: BP 124/60
[2016-11-17 17:06] LABS: ABSOLUTE BASOPHIL COUNT 0 /CUMM (0.0-0.2); ABSOLUTE EOSINOPHIL COUNT 0.2 /CUMM (0.0-0.7); ABSOLUTE GRANULOCYTE CT 12.5 /CUMM (1.4-6.5); ABSOLUTE LYMPH COUNT 1.5 /CUMM (1.2-3.4); ABSOLUTE MONOCYTE COUNT 1.3 /CUMM (0.10-0.60); BASOPHIL % 0.1 % (0.0-2.0); EOSINOPHIL % 1.5 % (0-5); GRANULOCYTE % 80.7 % (42.2-75.2); HEMATOCRIT 30.3 % (37-47); MEAN CORPUSCULAR HGB 29.6 PG (27.0-31.0); MEAN CORPUSCULAR HGB CONC 32.6 G/DL (33.0-37.0); MEAN CORPUSCULAR VOLUME 90.7 FL (81.0-99.0); MEAN PLATELET VOLUME 11.5 FL (7.4-10.4); PLATELET COUNT 257 /CUMM (130-400); RBC DISTRIBUTION WIDTH 14.9 % (11.5-14.5); RED BLOOD CELL CT 3.35 /CUMM (4.20-5.40); WHITE BLOOD CELL COUNT 15.5 /CUMM (4.8-10.8)
[2016-11-17 23:08] VITALS: BP 118/68
[2016-11-18 06:58] VITALS: BP 157/76
--- NOTE | 2016-11-18 08:18 | PN- Housestaff ---
BREANN DA SILVA 11/18/16 0816: Subjective Follow-up For: Gram-negative bacteremia Sepsis of urological origin UTI secondary to ESBL Escherichia coli Complaints: no complaints Subjective: Patient seen and examined at bedside. She is lying comfortably in bed is drowsy but arousable. She is down to 2.0 liters of O 2 via nasal cannula. Remains afebrile Wiunces in pain when the head of th ebed is elevated however abdominal exam is non-tender and Hernandez's is negative. Seh denies pain. PICC line was placed yesterday. Review of Systems Constitutional: Denies: chills, fever. Cardiovascular: Denies: chest pain, palpitations. Respiratory: Denies: cough, short of breath. Gastrointestinal: Denies: abdominal pain, constipation, diarrhea, nausea, vomiting. Musculoskeletal: Reports: no symptoms. Neurological/Psychological: Denies: headache, numbness, tingling, tremors. Objective Last 24 Hrs of Vital Signs/I&O Vital Signs Date Time Temp Pulse Resp B/P B/P Pulse O2 O2 Flow FiO2 Mean Ox Delivery Rate 11/18 0658 98.4 89 20 157/76 92 Nasal 2.0L Cannula 11/18 0000 Nasal 2.0L Cannula 11/17 2308 97.7 85 20 118/68 92 Nasal 2.0L Cannula 11/17 1440 98.2 90 20 124/60 95 Nasal 2.0L Cannula 11/17 1040 90 140/70 Intake & Output 11/18 1600 11/18 0800 11/18 0000 Intake Total 240 240 Output Total Balance 240 240 Intake, Oral 240 240 Number 1 1 Bowel Movements Physical Exam General Appearance: Cooperative, No Acute Distress, drowsy but arousable. HEENT: Atraumatic, PERRLA, EOMI, Mucous Membr. moist/pink Cardiovascular: Regular Rate, Normal S1, Normal S2, No Murmurs Lungs: Clear to Auscultation, Normal Air Movement Abdomen: Normal Bowel Sounds, Soft, No Tenderness, Hernandez's negative Neurological: Normal Speech Extremities: No Edema Current Medications: Current Medications Sig/Eloise Start time Last Medication Dose Route Stop Time Status Admin Atenolol 75 MG DAILY 11/15 1000 AC 11/17 PO 1040 Cholecalciferol 400 IU DAILY 11/16 1000 AC 11/17 PO 1040 Clopidogrel Bisulfate 75 MG DAILY 11/15 1000 AC 11/17 PO 1041 Escitalopram Oxalate 5 MG DAILY 11/15 1000 AC 11/17 PO 1039 Famotidine 20 MG DAILY 11/15 1725 AC 11/17 PO 1041 Levothyroxine Sodium 0.1 MG DAILY AC 11/15 1725 AC 11/18 PO 0623 Melatonin 5 MG AT BEDTIME 11/15 2200 AC 11/17 PO 2243 Meropenem 1 GM Q12 11/14 2200 AC 11/17 IV 2243 Multivitamins 1 TAB DAILY 11/15 1725 AC 11/17 Therapeutic PO 1040 Omeprazole 40 MG DAILY AC 11/14 1416 AC 11/18 PO 0623 Patient Medication 1 ED .STK-MED ONE 11/17 1418 MN Teaching ED 11/17 141 Polyethylene Glycol 17 GM DAILY 11/15 1726 AC 11/17 PO 1041 Trazodone HCl 50 MG QPM 11/16 2200 AC 11/17 PO 2243 Last 24 Hrs of Lab/Federico Results Last 24 Hrs of Labs/Mics: Laboratory Tests 11/17/16 1530: Anion Gap 8, Estimated GFR > 60, BUN/Creatinine Ratio 27.5 H, CBC w Diff NO MAN DIFF REQ, RBC 3.35 L, MCV 90.7, MCH 29.6, RDW 14.9 H, MPV 11.5 H, Gran % 80.7 H, Lymphocytes % 9.4 L, Monocytes % 8.3, Eosinophils % 1.5, Basophils % 0.1, Absolute Granulocytes 12.5 H, Absolute Lymphocytes 1.5, Absolute Monocytes 1.3 H, Absolute Eosinophils 0.2, Absolute Basophils 0, PUBS MCHC 32.6 L Assessment/Plan Assessment: 89-year-old woman with past medical history significant for hypertension, hyperlipidemia,PVD, hypothyroidism, dementia, PVD s/p Lt. 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 She was being treated there for UTI. She was lethargic and confused on presentation and was unable to provide the history. Vitals on admission patient had a MAXIMUM TEMPERATURE of 100, no tachypnea, no tachycardia, systolic blood pressure 130 to 133 and systolic 60-61, oxygen saturation of 93-95% on 4 L of nasal cannula On examination she was lethargic and only responsive to pain system November, no rashes on skin examination, S1 and S2 audible with regular rhythm, lungs clear to auscultation, abdomen soft nontender audible bowel sounds, and limited grossly intact neurological examination, no bilateral lower extremity edema. Patient was admitted on general medicine floor for the management of following problems Sepsis secondary to UTI/ ESBL- Escherichia coli/ gram-negative bacteremia Patient presented in emergency department with low-grade fever with a leukocytosis 21.2, and recent urine culture positive for ESBL Escherichia coli. She also has a blood culture obtained 3 days prior to admission, positive for gram-negative rods. The most likely source of her positive blood culture is the urinary tract, with positive urine culture. ID consult was obtained and recommended starting the patient on IV meropenem. In order to rule out the possibility of any other intra-abdominal process, with mild increase in bilirubin and alkaline phosphatase, right upper quadrant ultrasound was also ordered which showed calcified 1.3 cm gallstone lodged within the gallbladder neck. Larger as compared to 0.5 cm in 2007. No findings of acute cholecystitis. No evidence of sludge, polyps, gallbladder wall thickening or pericholecystic fluid. Exophytic mass in the lower lobe of the right kidney consistent with hemorrhagic cyst. Hernandez's negative. Continue with IV antibiotics for now for a total of 14 days for UTI. As per ID patient is required at least 2 weeks of treatment with IV antibiotics. Will require weekly BEP while on Meropenem and a repeat CBC next week. This morning's labs pending if WBC count comes down will discharge gher to SNF today. PICC Line Consent Conservator was called and PICC line consent was obtained in the presence of Breann ROBERTSON [facility]. Patient underwent a PICC line placement Altered mental status history of dementia Toxic encephalopathy secondary to sepsis Resolved Patient is currently on IV antibiotics Possibility of any acute intracranial change ruled out by CAT scan of the head Hypokalemia Resolved Repleted with by mouth potassium Will recheck the labs Patient is full code Patient is on Alps for DVT prophylaxis Patient is on pain management Patient was nothing by mouth pending swallow evaluation Problem List: 1. Mental status change 2. Altered mental state Pain Ratin Pain Location: n/a Pain Goal: Remain pain free Pain Plan: tylenol Tomorrow's Labs & Rationales: n/a Consulting Request: Consulting Specialty: Infectious Disease Discharge Plan Discharge Disposition: STR/NH Stable for Discharge? Yes Anticipated Discharge (Day): today If Discharged Today/In 24 Hrs: enter [facility] discharge ord, W-10/discharge paper done, DC summary done, CMR done COOPER CARRASQUILLO MD 11/18/16 1035: Attending MD Review Statement Attending Statement Attending MD Statement: examined this patient, discuss w/resident/PA/UI DESIGNER, agreed w/resident/PA/UI DESIGNER, reviewed EMR data (avail), discussed with nursing Attending Assessment/Plan: 89 year old female with past medical history of hypertension, hyperlipidemia, peripheral arterial disease with stenting, dementia (conservator in place) who is here with ESBL bacteremia gram-negative bacteremia. The presumed source is urological in origin but other possibility of a biliary source is also being entertained. We are following IDs recommendations and if clinically stable in terms of white count and abdominal exam then she may be able [facility] today with 2 weeks of IV meropenem. A PICC line was inserted for this. And she will need weekly blood draws specifically BUN and creatinine on the meropenem. Today's labs are still pending and once the labs come back ,we' ll touch base with ID regarding discharge plans.
[2016-11-18] MEDS ORDERED: MEROPENEM1 G1 IV (11:06)
--- NOTE | 2016-11-18 11:19 | Patient Discharge Instructions ---
Discharge Instructions General Discharge Information You were seen/treated for: Sepsis secondary to UTI/ ESBL- Escherichia coli/ gram-negative bacteremia Altered mental status Special Instructions: Please follow up with your PCP in one week. Please have a repeat CBC in one week 11/23/16. Please continue Meropenem through 11/28/16 and have weekly BEP while on the medications. . Diet Recommended Diet: Regular (Puree and honey thick) Activity Activity Self Limited: Yes Acute Coronary Syndrome Inclusion Criteria At DC or during hospital stay patient has or had the following: ACS DIAGNOSIS No Discharge Core Measures Meds if any: Prescribed or Continued at Discharge Meds if any: NOT Prescribed or Continued at Discharge Congestive Heart Failure Inclusion Criteria At DC or during hospital stay patient has or had the following: CHF DIAGNOSIS No Discharge Core Measures Meds if any: Prescribed or Continued at Discharge Meds if any: NOT Prescribed or Continued at Discharge Cerebrovascular accident Inclusion Criteria At DC or during hospital stay patient has or had the following: CVA/TIA Diagnosis No Discharge Core Measures Meds if any: Prescribed or Continued at Discharge Meds if any: NOT Prescribed or Continued at Discharge Venous thromboembolism Inclusion Criteria VTE Diagnosis No VTE Type NONE VTE Confirmed by (Test) NONE Discharge Core Measures - Per Current guidelines, there needs to be overlap - treatment for the first 5 days of Warfarin therapy. - If discharged on Warfarin prior to 5 days of - overlap therapy, the patient will need to be - assessed for post discharge needs including - *Post discharge parental anticoagulation - *Warfarin and/or parental anticoagulation education - *Follow up date to check INR post discharge At least 5 days overlap therapy as Inpatient No Meds if any: Prescribed or Continued at Discharge Note: Overlap Therapy is Warfarin and Anticoagulant Meds if any: NOT Prescribed or Continued at Discharge
[2016-11-18 11:48] LABS: ABSOLUTE BASOPHIL COUNT 0 /CUMM (0.0-0.2); ABSOLUTE EOSINOPHIL COUNT 0.2 /CUMM (0.0-0.7); ABSOLUTE GRANULOCYTE CT 9.6 /CUMM (1.4-6.5); ABSOLUTE LYMPH COUNT 1.5 /CUMM (1.2-3.4); BASOPHIL % 0.2 % (0.0-2.0); EOSINOPHIL % 1.6 % (0-5); GRANULOCYTE % 78.3 % (42.2-75.2); HEMATOCRIT 27.2 % (37-47); MEAN CORPUSCULAR HGB 29.3 PG (27.0-31.0); MEAN CORPUSCULAR HGB CONC 32.4 G/DL (33.0-37.0); MEAN CORPUSCULAR VOLUME 90.4 FL (81.0-99.0); MEAN PLATELET VOLUME 11.1 FL (7.4-10.4); PLATELET COUNT 257 /CUMM (130-400); RBC DISTRIBUTION WIDTH 14.8 % (11.5-14.5); RED BLOOD CELL CT 3.01 /CUMM (4.20-5.40); WHITE BLOOD CELL COUNT 12.3 /CUMM (4.8-10.8)
[2016-11-18 12:59] VITALS: BP 128/62
== END 2016-11-18 14:15 | DRG 871 ==
LOC: ERH 10:47 → 2NB 12:05 → ERHI 12:05 → 2NB 12:43 → ERH 12:43 → ERHI 12:43 → CANRESERV 12:54 → ENRESERV 12:54 → ENTRNSPT 14:18 → EDTRNSPTSTS 14:37 → 2NB 14:49 → ERHI 14:49 → CMPTRNSPT 15:20 → ENPENDDIS 11-18 12:24 → 2NB 11-18 14:15
PROVIDERS: Physician Assistant Medical; Student in an Organized Health Care Education/Training Program; ADMIT Internal Medicine
DX: A41.51 Sepsis due to Escherichia coli [E. coli] (principal); G92 Toxic encephalopathy; L89.151 Pressure ulcer of sacral region, stage 1; E87.0 Hyperosmolality and hypernatremia; N39.0 Urinary tract infection, site not specified; L89.620 Pressure ulcer of left heel, unstageable; I73.9 Peripheral vascular disease, unspecified; F03.90 Unspecified dementia, unspecified severity, without behavioral disturbance, psychotic disturbance, mood disturbance, and anxiety; E87.6 Hypokalemia; I10 Essential (primary) hypertension; E78.5 Hyperlipidemia, unspecified; E03.9 Hypothyroidism, unspecified; K58.0 Irritable bowel syndrome with diarrhea; K21.9 Gastro-esophageal reflux disease without esophagitis; Z95.9 Presence of cardiac and vascular implant and graft, unspecified; Z89.412 Acquired absence of left great toe
CPT/HCPCS: 2NBP; 36415; 81001; 82436; 87040; 87086; 93005; 93010; 96365; C1769; J0696; J1580; J2185; J7040; J7042